=== PATIENT | male | born 1945 | race Caucasian/White ===

== ENCOUNTER 2017-05-13 14:25 | Inpatient (IN) | payer OTHER ==
[~2017-05-13] VITALS: Ht 177.8 cm; Wt 72.6 kg
[2017-05-13] MEDS ORDERED: IV NORMAL SALINE 1000ML BAG 1,000 ML IV ONE (14:45)
[2017-05-13 15:18] LABS: BASO # 0.1 x10^3/uL (0.0-0.2); BASO % 1 % (0-3); EOS % 1 % (0-3); HEMATOCRIT 48.3 % (39.0-53.0); HEMOGLOBIN 16.4 g/dL (13.0-17.5); LYMPH # 2.4 x10^3/uL (1.0-4.8); LYMPH % 28 % (24-48); MEAN CORPUSCULAR HEMOGLOBIN 31 pg (25-35); MEAN CORPUSCULAR HGB CONC 34 g/dL (31-37); MEAN CORPUSCULAR VOLUME 91 fL (79-100); MONO % 8 % (0-9); NEUT % 62 % (31-73); PLATELET COUNT 227 x10^3/uL (140-400); RED BLOOD COUNT 5.29 x10^6/uL (4.30-5.70); RED CELL DISTRIBUTION WIDTH 13.3 % (11.5-14.5); WHITE BLOOD COUNT 8.6 x10^3/uL (4.0-11.0)
--- NOTE | 2017-05-13 15:28 | RAD ---
CT head without contrast 05/13/2017 at 1513 hours Indication: Altered mental status Comparison: None available Technique: Multiple axial noncontrast CT images of the head were obtained from the skull base through the vertex. Findings: The ventricles, sulci and basal cisterns are within normal limits. Low-attenuation periventricular white matter is compatible with chronic small vessel ischemic changes. Remote lacunar infarcts are noted in the bilateral basal ganglia. Remote left subinsular infarct is noted. Yanez-white matter differentiation is normal. There is no acute intracranial hemorrhage. There is no mass, mass effect or midline shift. Posterior fossa is within normal limits. Sellar and suprasellar cistern appear normal. Orbits are normal in appearance. Paranasal sinuses are well aerated. Mastoid air cells are well aerated. Scalp and calvaria are normal. Impression: 1. There is no acute intracranial hemorrhage. 2. Moderate chronic small vessel ischemic changes in the paraventricular white matter with remote lacunar infarcts in the basal ganglia and a remote infarct noted in the left frontal white matter. PQRS Compliance Statement: One or more of the following individualized dose reduction techniques were utilized for this examination: 1. Automated exposure control 2. Adjustment of the mA and/or kV according to patient size 3. Use of iterative reconstruction technique
--- NOTE | 2017-05-13 15:34 | PHYS DOC ---
Adult General Chief Complaint Chief Complaint: ALTERED MENTAL STATUS HPI HPI Patient is a 72 year old male presenting to the emergency department for evaluation of altered mental status. Reportedly he was last seen normal 2 days ago and his family went to go check on him today and he is alert and oriented 1. He will follow commands but he does not have any knowledge of orientation questions. Patient denies any pain and he is in no obvious distress with normal vital signs. Review of Systems Review of Systems Unable to obtain due to medical condition. Current Medications Current Medications Current Medications Medications (Trade) Dose Ordered Sig/Gordo Start Time Stop Time Status Last Admin Dose Admin Ondansetron HCl (Zofran) 4 mg PRN Q8HRS PRN 05/13/17 16:15 05/14/17 16:14 Sodium Chloride 1,000 ml @ 1,000 mls/hr 1X ONCE 05/13/17 14:45 05/13/17 15:44 DC 05/13/17 15:03 1,000 MLS/HR Allergies Allergies Allergies Coded Allergies Type Severity Reaction Last Updated Verified No Known Drug Allergies 05/13/17 No Physical Exam Physical Exam Constitutional: no acute distress, non-toxic appearance. [] HENT: Normocephalic, atraumatic, bilateral external ears normal, oropharynx moist, no oral exudates, nose normal. [] Eyes: PERRLA, EOMI, conjunctiva normal, no discharge. [] Neck: Normal range of motion, no tenderness, supple, no stridor. [] Cardiovascular:Heart rate regular rhythm, no murmur [] Lungs & Thorax: Bilateral breath sounds clear to auscultation [] Abdomen: Bowel sounds normal, soft, no tenderness, no masses, no pulsatile masses. [] Skin: Warm, dry, no erythema, no rash. [] Back: No tenderness, no CVA tenderness. [] Extremities: No tenderness, no cyanosis, no clubbing, ROM intact, no edema. [] Neurologic: Alert and oriented X 1, moves all extremities. Slight asterixis on bilateral upper extremity exam. Mild tremor at baseline as well. Current Patient Data Vital Signs Vital Signs Date Time Temp Pulse Resp B/P (MAP) Pulse Ox O2 Delivery O2 Flow Rate FiO2 05/13/17 14:35 98.6 85 18 163/81 (108) 96 Room Air 98.6 Lab Values Laboratory Tests Test 05/13/17 14:44 White Blood Count 8.6 x10^3/uL (4.0-11.0) Red Blood Count 5.29 x10^6/uL (4.30-5.70) Hemoglobin 16.4 g/dL (13.0-17.5) Hematocrit 48.3 % (39.0-53.0) Mean Corpuscular Volume 91 fL (79-100) Mean Corpuscular Hemoglobin 31 pg (25-35) Mean Corpuscular Hemoglobin Concent 34 g/dL (31-37) Red Cell Distribution Width 13.3 % (11.5-14.5) Platelet Count 227 x10^3/uL (140-400) Neutrophils (%) (Auto) 62 % (31-73) Lymphocytes (%) (Auto) 28 % (24-48) Monocytes (%) (Auto) 8 % (0-9) Eosinophils (%) (Auto) 1 % (0-3) Basophils (%) (Auto) 1 % (0-3) Neutrophils # (Auto) 5.3 x10^3uL (1.8-7.7) Lymphocytes # (Auto) 2.4 x10^3/uL (1.0-4.8) Monocytes # (Auto) 0.7 x10^3/uL (0.0-1.1) Eosinophils # (Auto) 0.1 x10^3/uL (0.0-0.7) Basophils # (Auto) 0.1 x10^3/uL (0.0-0.2) Prothrombin Time 12.9 SEC (11.7-14.0) Prothrombin Time INR 1.0 (0.8-1.1) PTT 35 SEC (24-38) Sodium Level 135 mmol/L (136-145) L Potassium Level 4.2 mmol/L (3.5-5.1) Chloride Level 98 mmol/L (98-107) Carbon Dioxide Level 23 mmol/L (21-32) Anion Gap 14 (6-14) Blood Urea Nitrogen 13 mg/dL (8-26) Creatinine 1.1 mg/dL (0.7-1.3) Estimated GFR (Cockcroft-Gault) 66.0 BUN/Creatinine Ratio 12 (6-20) Glucose Level 97 mg/dL (70-99) Lactic Acid Level 1.0 mmol/L (0.4-2.0) Calcium Level 9.1 mg/dL (8.5-10.1) Magnesium Level 2.1 mg/dL (1.8-2.4) Total Bilirubin 0.7 mg/dL (0.2-1.0) Aspartate Amino Transferase (AST) 20 U/L (15-37) Alanine Aminotransferase (ALT) 21 U/L (16-63) Alkaline Phosphatase 128 U/L (46-116) H Ammonia < 10 mcmol/L (11-34) L Troponin I Quantitative < 0.017 ng/mL (0.000-0.055) TT-Lcc-Q-Type Natriuretic Peptide 392 pg/mL (0-124) H Total Protein 7.6 g/dL (6.4-8.2) Albumin 3.4 g/dL (3.4-5.0) Albumin/Globulin Ratio 0.8 (1.0-1.7) L Lipase 58 U/L (73-393) L Thyroid Stimulating Hormone (TSH) 1.112 uIU/mL (0.358-3.74) Salicylates Level 3.4 mg/dL (2.8-20.0) Salicylate Last Dose Date Salicylate Last Dose Time Acetaminophen Level < 2 mcg/ml (10-30) L Acetaminophen Last Dose Date Acetaminophen Last Dose Time Ethyl Alcohol Level < 10 mg/dL (0-10) Laboratory Tests 05/13/17 14:44 Laboratory Tests 05/13/17 14:44 EKG EKG Sinus rhythm at 61 beats per minutes with leftward axis no obvious ST elevation or depression and normal T waves. Radiology/Procedures Radiology/Procedures CT head without contrast 05/13/2017 at 1513 hours Indication: Altered mental status Comparison: None available Technique: Multiple axial noncontrast CT images of the head were obtained from the skull base through the vertex. Findings: The ventricles, sulci and basal cisterns are within normal limits. Low-attenuation periventricular white matter is compatible with chronic small vessel ischemic changes. Remote lacunar infarcts are noted in the bilateral basal ganglia. Remote left subinsular infarct is noted. Yanez-white matter differentiation is normal. There is no acute intracranial hemorrhage. There is no mass, mass effect or midline shift. Posterior fossa is within normal limits. Sellar and suprasellar cistern appear normal. Orbits are normal in appearance. Paranasal sinuses are well aerated. Mastoid air cells are well aerated. Scalp and calvaria are normal. Impression: 1. There is no acute intracranial hemorrhage. 2. Moderate chronic small vessel ischemic changes in the paraventricular white matter with remote lacunar infarcts in the basal ganglia and a remote infarct noted in the left frontal white matter. PQRS Compliance Statement: One or more of the following individualized dose reduction techniques were utilized for this examination: 1. Automated exposure control 2. Adjustment of the mA and/or kV according to patient size 3. Use of iterative reconstruction technique DICTATED and SIGNED BY: JARVIS COLIN MD DATE: 05/13/17 1523 Course & Med Decision Making Course & Med Decision Making Patient with undifferentiated altered mental status. He will require admission for further observation and treatment. His workup is very unremarkable however patient's mental status has not changed. Given patient has had acute mental status changes he will be admitted for further observation and treatment. Patient admitted in stable condition. Dragon Disclaimer Dragon Disclaimer This electronic medical record was generated, in whole or in part, using a voice recognition dictation system. Departure Departure Impression: Primary Impression: Acute encephalopathy Additional Impression: Elevated brain natriuretic peptide (BNP) level Disposition: ADMITTED INPATIENT Admitting Physician: Julianne Palmer Condition: STABLE Referrals: NO PCP (PCP) Problem Qualifiers HOWIE HERNANDEZ DO May 13, 2017 15:34
[2017-05-13 15:38] LABS: CALCIUM 9.1 mg/dL (8.5-10.1); CREATININE 1.1 mg/dL (0.7-1.3); POTASSIUM 4.2 mmol/L (3.5-5.1)
[2017-05-13 15:41] LABS: ETHANOL < 10 mg/dL (0-10)
[2017-05-13 15:43] LABS: ALBUMIN 3.4 g/dL (3.4-5.0); ALBUMIN/GLOBULIN RATIO 0.8 (1.0-1.7); MAGNESIUM 2.1 mg/dL (1.8-2.4); TOTAL BILIRUBIN 0.7 mg/dL (0.2-1.0); TOTAL PROTEIN 7.6 g/dL (6.4-8.2)
[2017-05-13 15:52] LABS: PROTHROMBIN TIME PATIENT 12.9 SEC (11.7-14.0)
--- NOTE | 2017-05-13 16:04 | EKG ---
[facility] [address] [place] [address] Test Date: 2017-05-13 Test Time: 14:30:59 Pat Name: RUPERTO APPLE Department: Room: Gender: M Crust Sorter: : 1945 Requested By: HOWEI HERNANDEZ Order Number: [id number] Reading MD: Melissa Andino Measurements Intervals [place] Rate: 61 P: 35 TN: 154 QRS: -11 QRSD: 88 T: 12 QT: 422 QTc: 426 Interpretive Statements SINUS RHYTHM ATRIAL PREMATURE COMPLEX(ES) LEFTWARD AXIS QRS(T) CONTOUR ABNORMALITY CONSISTENT WITH INFERIOR INFARCT PROBABLY OLD Electronically Signed On 05-14-2017 16:21:47 CDT by Melissa Andino
[2017-05-13] MEDS ORDERED: ONDANSETRON PF 4 MG/2 ML VIAL. IV PRN (16:15)
[2017-05-13 16:45] LABS: BILIRUBIN,URINE NEGATIVE (NEG); GLUCOSE,URINE NEGATIVE (NEG); NITRITE,URINE NEGATIVE (NEG); PH,URINE 5.5; PROTEIN,URINE NEGATIVE (NEG-TRACE); UROBILINOGEN,URINE 0.2 mg/dL (0.2 mg/dL)
[2017-05-13 17:23] LABS: BACTERIA,URINE FEW /HPF (0-FEW); RBC,URINE 0 /HPF (0-2)
[2017-05-13 17:33] LABS: BARBITURATES NEG (NEG); BENZODIAZEPINES NEG (NEG); CANNABINOIDS NEG (NEG); COCAINE NEG (NEG); METHADONE NEG (NEG); OPIATES NEG (NEG); PHENCYCLIDINE NEG (NEG)
[2017-05-13 18:45] VITALS: BP 142/73
[2017-05-13 19:20] VITALS: BP 121/61
--- NOTE | 2017-05-13 20:56 | PDOC1 ---
History and Physical Date of Admission Date of Admission DATE: 05/13/17 TIME: 20:52 Source Source: Caregiver, Chart review History of Present Illness History of Present Illness MR. Guerra is a 72 year old male admit for confusion and disoriented. New altered mental status. He was last seen 2 days ago and his family went to go check on him today and he is alert and oriented 1. He will follow commands but he does not have any knowledge of orientation questions. He is watching the [employer] game on TV, but incorrectly states score and location , cannot follow He denies any pain and he is in no obvious distress with normal vital signs. Past Medical History Cardiovascular: HTN CENTRAL NERVOUS SYSTEM: Other (CVA seen on CT) ENT: No pertinent hx Renal/: No pertinent hx Endocrine: No pertinent hx Past Surgical History Past Surgical History: No pertinent history Family History Family History: No Significant Social History Smoke: No ALCOHOL: none Current Problem List Problem List Problems Medical Problems: (1) Acute encephalopathy Status: Acute (2) Elevated brain natriuretic peptide (BNP) level Status: Acute Problems: Current Medications Current Medications Current Medications Sodium Chloride 1,000 ml @ 1,000 mls/hr 1X ONCE IV Last administered on t 15:03; Start 05/13/17 at 14:45; Stop 05/13/17 at 15:44; Status DC Ondansetron HCl (Zofran) 4 mg PRN Q8HRS PRN IV NAUSEA/VOMITING; Start 05/13/17 at 16:15; Stop 05/14/17 at 16:14 Allergies Allergies: Coded Allergies: No Known Drug Allergies (Unverified , 05/13/17) ROS Review of System he is unable to remember much Physical Exam General: Alert, Cooperative, No acute distress, Other (disoriented) HEENT: EOMI, Mucous membr. moist/pink Lungs: Normal air movement Abdomen: Normal bowel sounds, Soft Rectal Exam: not examined Extremities: No clubbing, No cyanosis, No edema, Normal pulses Skin: No rashes, No significant lesion Neuro: Normal tone, Sensation intact, Cranial nerves 3-12 NL Psych/Mental Status: Mood NL Vitals Vitals Vital Signs Date Time Temp Pulse Resp B/P (MAP) Pulse Ox O2 Delivery O2 Flow Rate FiO2 05/13/17 18:45 97.9 52 19 142/73 (96) 98 Room Air 97.9 Labs Labs Laboratory Tests Test 05/13/17 14:44 05/13/17 16:00 05/13/17 18:45 White Blood Count 8.6 x10^3/uL (4.0-11.0) Red Blood Count 5.29 x10^6/uL (4.30-5.70) Hemoglobin 16.4 g/dL (13.0-17.5) Hematocrit 48.3 % (39.0-53.0) Mean Corpuscular Volume 91 fL (79-100) Mean Corpuscular Hemoglobin 31 pg (25-35) Mean Corpuscular Hemoglobin Concent 34 g/dL (31-37) Red Cell Distribution Width 13.3 % (11.5-14.5) Platelet Count 227 x10^3/uL (140-400) Neutrophils (%) (Auto) 62 % (31-73) Lymphocytes (%) (Auto) 28 % (24-48) Monocytes (%) (Auto) 8 % (0-9) Eosinophils (%) (Auto) 1 % (0-3) Basophils (%) (Auto) 1 % (0-3) Neutrophils # (Auto) 5.3 x10^3uL (1.8-7.7) Lymphocytes # (Auto) 2.4 x10^3/uL (1.0-4.8) Monocytes # (Auto) 0.7 x10^3/uL (0.0-1.1) Eosinophils # (Auto) 0.1 x10^3/uL (0.0-0.7) Basophils # (Auto) 0.1 x10^3/uL (0.0-0.2) Prothrombin Time 12.9 SEC (11.7-14.0) Prothromb Time International Ratio 1.0 (0.8-1.1) Activated Partial Thromboplast Time 35 SEC (24-38) Sodium Level 135 mmol/L (136-145) Potassium Level 4.2 mmol/L (3.5-5.1) Chloride Level 98 mmol/L (98-107) Carbon Dioxide Level 23 mmol/L (21-32) Anion Gap 14 (6-14) Blood Urea Nitrogen 13 mg/dL (8-26) Creatinine 1.1 mg/dL (0.7-1.3) Estimated GFR (Cockcroft-Gault) 66.0 BUN/Creatinine Ratio 12 (6-20) Glucose Level 97 mg/dL (70-99) Lactic Acid Level 1.0 mmol/L (0.4-2.0) Calcium Level 9.1 mg/dL (8.5-10.1) Magnesium Level 2.1 mg/dL (1.8-2.4) Total Bilirubin 0.7 mg/dL (0.2-1.0) Aspartate Amino Transf (AST/SGOT) 20 U/L (15-37) Alanine Aminotransferase (ALT/SGPT) 21 U/L (16-63) Alkaline Phosphatase 128 U/L (46-116) Ammonia < 10 mcmol/L (11-34) Troponin I Quantitative < 0.017 ng/mL (0.000-0.055) HV-Kcn-G-Type Natriuretic Peptide 392 pg/mL (0-124) Total Protein 7.6 g/dL (6.4-8.2) Albumin 3.4 g/dL (3.4-5.0) Albumin/Globulin Ratio 0.8 (1.0-1.7) Lipase 58 U/L (73-393) Thyroid Stimulating Hormone (TSH) 1.112 uIU/mL (0.358-3.74) 1.236 uIU/mL (0.358-3.74) Salicylates Level 3.4 mg/dL (2.8-20.0) Salicylate Last Dose Date Salicylate Last Dose Time Acetaminophen Level < 2 mcg/ml (10-30) Acetaminophen Last Dose Date Acetaminophen Last Dose Time Ethyl Alcohol Level < 10 mg/dL (0-10) Urine Collection Type Unknown Urine Color Yellow Urine Clarity Clear Urine pH 5.5 Urine Specific [place] 1.010 Urine Protein Negative mg/dL (NEG-TRACE) Urine Glucose (UA) Negative mg/dL (NEG) Urine Ketones (Stick) 40 mg/dL (NEG) Urine Blood Negative (NEG) Urine Nitrite Negative (NEG) Urine Bilirubin Negative (NEG) Urine Urobilinogen Dipstick 0.2 mg/dL (0.2 mg/dL) Urine Leukocyte Esterase Negative (NEG) Urine RBC 0 /HPF (0-2) Urine WBC 1-4 /HPF (0-4) Urine Squamous Epithelial Cells None /LPF Urine Transitional Epithelial Cells Mod /LPF Urine Bacteria Few /HPF (0-FEW) Urine Mucus Mod /LPF Urine Opiates Screen Neg (NEG) Urine Methadone Screen Neg (NEG) Urine Barbiturates Neg (NEG) Urine Phencyclidine Screen Neg (NEG) Urine Amphetamine/Methamphetamine Neg (NEG) Urine Benzodiazepines Screen Neg (NEG) Urine Cocaine Screen Neg (NEG) Urine Cannabinoids Screen Neg (NEG) Urine Ethyl Alcohol Neg (NEG) Laboratory Tests Test 05/13/17 14:44 05/13/17 16:00 05/13/17 18:45 White Blood Count 8.6 x10^3/uL (4.0-11.0) Red Blood Count 5.29 x10^6/uL (4.30-5.70) Hemoglobin 16.4 g/dL (13.0-17.5) Hematocrit 48.3 % (39.0-53.0) Mean Corpuscular Volume 91 fL (79-100) Mean Corpuscular Hemoglobin 31 pg (25-35) Mean Corpuscular Hemoglobin Concent 34 g/dL (31-37) Red Cell Distribution Width 13.3 % (11.5-14.5) Platelet Count 227 x10^3/uL (140-400) Neutrophils (%) (Auto) 62 % (31-73) Lymphocytes (%) (Auto) 28 % (24-48) Monocytes (%) (Auto) 8 % (0-9) Eosinophils (%) (Auto) 1 % (0-3) Basophils (%) (Auto) 1 % (0-3) Neutrophils # (Auto) 5.3 x10^3uL (1.8-7.7) Lymphocytes # (Auto) 2.4 x10^3/uL (1.0-4.8) Monocytes # (Auto) 0.7 x10^3/uL (0.0-1.1) Eosinophils # (Auto) 0.1 x10^3/uL (0.0-0.7) Basophils # (Auto) 0.1 x10^3/uL (0.0-0.2) Prothrombin Time 12.9 SEC (11.7-14.0) Prothromb Time International Ratio 1.0 (0.8-1.1) Activated Partial Thromboplast Time 35 SEC (24-38) Sodium Level 135 mmol/L (136-145) Potassium Level 4.2 mmol/L (3.5-5.1) Chloride Level 98 mmol/L (98-107) Carbon Dioxide Level 23 mmol/L (21-32) Anion Gap 14 (6-14) Blood Urea Nitrogen 13 mg/dL (8-26) Creatinine 1.1 mg/dL (0.7-1.3) Estimated GFR (Cockcroft-Gault) 66.0 BUN/Creatinine Ratio 12 (6-20) Glucose Level 97 mg/dL (70-99) Lactic Acid Level 1.0 mmol/L (0.4-2.0) Calcium Level 9.1 mg/dL (8.5-10.1) Magnesium Level 2.1 mg/dL (1.8-2.4) Total Bilirubin 0.7 mg/dL (0.2-1.0) Aspartate Amino Transf (AST/SGOT) 20 U/L (15-37) Alanine Aminotransferase (ALT/SGPT) 21 U/L (16-63) Alkaline Phosphatase 128 U/L (46-116) Ammonia < 10 mcmol/L (11-34) Troponin I Quantitative < 0.017 ng/mL (0.000-0.055) JX-Nke-N-Type Natriuretic Peptide 392 pg/mL (0-124) Total Protein 7.6 g/dL (6.4-8.2) Albumin 3.4 g/dL (3.4-5.0) Albumin/Globulin Ratio 0.8 (1.0-1.7) Lipase 58 U/L (73-393) Thyroid Stimulating Hormone (TSH) 1.112 uIU/mL (0.358-3.74) 1.236 uIU/mL (0.358-3.74) Salicylates Level 3.4 mg/dL (2.8-20.0) Salicylate Last Dose Date Salicylate Last Dose Time Acetaminophen Level < 2 mcg/ml (10-30) Acetaminophen Last Dose Date Acetaminophen Last Dose Time Ethyl Alcohol Level < 10 mg/dL (0-10) Urine Collection Type Unknown Urine Color Yellow Urine Clarity Clear Urine pH 5.5 Urine Specific [place] 1.010 Urine Protein Negative mg/dL (NEG-TRACE) Urine Glucose (UA) Negative mg/dL (NEG) Urine Ketones (Stick) 40 mg/dL (NEG) Urine Blood Negative (NEG) Urine Nitrite Negative (NEG) Urine Bilirubin Negative (NEG) Urine Urobilinogen Dipstick 0.2 mg/dL (0.2 mg/dL) Urine Leukocyte Esterase Negative (NEG) Urine RBC 0 /HPF (0-2) Urine WBC 1-4 /HPF (0-4) Urine Squamous Epithelial Cells None /LPF Urine Transitional Epithelial Cells Mod /LPF Urine Bacteria Few /HPF (0-FEW) Urine Mucus Mod /LPF Urine Opiates Screen Neg (NEG) Urine Methadone Screen Neg (NEG) Urine Barbiturates Neg (NEG) Urine Phencyclidine Screen Neg (NEG) Urine Amphetamine/Methamphetamine Neg (NEG) Urine Benzodiazepines Screen Neg (NEG) Urine Cocaine Screen Neg (NEG) Urine Cannabinoids Screen Neg (NEG) Urine Ethyl Alcohol Neg (NEG) VTE Prophylaxis Ordered VTE Prophylaxis Devices: Yes VTE Pharmacological Prophylaxi: No Assessment/Plan Assessment/Plan encephalopathy, w/u neg so far, CT head showed prior infarct, poss new CVA w/u CVA syndrome, Neuro consult, MRI brain pending check lipids MANISHA FARIA MD May 13, 2017 20:56
[2017-05-13] MEDS ORDERED: ASPIRIN 325 MG TABLET PO ONE (21:00)
[2017-05-13 23:20] VITALS: BP 133/61
--- NOTE | 2017-05-14 01:15 | ACF ---
Admission Forms Criteria MENTAL STATUS CHANGE Clinical Indications for Inpatient Care (Place 'X' for any and all applicable criteria): Ongoing inpatient care may be needed for 1 or more of the following(1)(2)(3)(5)( 6): [X]I. Suspected serious etiology (eg, medical disorder, GUM DIPPER event) of altered mental status [ ]II. Danger to self or others not manageable at lower level of care [ ]III. Grave disability (eg, inability to perform self care necessary at lower level of care) [ ]IV. Agitation or inappropriate behavior interfering with care for primary condition (eg, attempting to discontinue lines or drains prematurely, unable to cooperate with respiratory care) [ ]V. Delirium [A] [D][E] as described by 1 or more of the following(26): [ ]a) Delirium due to alcohol or sedative [F] withdrawal [ ]b) Delirium of uncertain etiology that has not responded to appropriate empiric treatment [ ]c) Delirium that prevents performance of a life-sustaining function (eg, feeding or hydrating oneself) [ ]. General contraindications and/or Inappropriate clinical situations for Observational Care in patients with Mental Status Change, when ANY ONE of the following is required: [ ]a) Prediction of prolongation of LOS based on ANY ONE of the following may be considered as a contraindication for observational care 2, 3, 4, 5, 6, 7, 8, 9, 10, 11 [ ]i) Age > 65 yrs. [ ]ii) Patient arriving by ambulance [ ]iii) Patient with high acuity [ ]iv) Patient requiring vital sign monitoring [ ]v) Patient on IV medication [ ]b) Systolic blood pressures greater than or equal to 180mmHg 3, 12 [ ]c) Patient with altered mental status including delirium and other alteration of consciousness, (3) [ ]d) Patient whose discharge disposition will be to a custodial home or rehabilitation home should not be managed in Emergency Department Observation Unit. CMS rule requires 3 days hospital stay before such placement.3,13 [ ]e) Patient with failure to thrive due to broad array of etiologies 3,16,17 [ ]f) Inability to ambulate 3,14 Extended stay beyond goal length of stay for the primary condition may be needed until ALL of the following are present(3)(5): [ ]a) Underlying medical etiology of mental status change is absent, or has been established and adequately treated [ ]b) Danger to self or others is absent or manageable at lower level of care. [ ]c) Behavior crisis management, including physical or chemical restraints, is not required or available at lower level of car [ ]d) Substance or alcohol withdrawal is absent or manageable at lower level of care. [ ]e) Behavioral symptoms (eg, agitation, somnolence, inappropriate behavior) are absent, or are manageable at lower level of care. The original [facility] content created by [facility] has been revised. The portions of the content which have been revised are identified through the use of italic text or in bold, and [facility] has neither reviewed nor approved the modified material. All other unmodified content is copyright [facility]. Please see references footnoted in the original [facility] edition 2016 Admission Criteria Met?: Yes FARRAH ALLEN May 14, 2017 01:15
[2017-05-14 03:20] VITALS: BP 101/62
[2017-05-14 04:17] LABS: BASO # 0.1 x10^3/uL (0.0-0.2); BASO % 1 % (0-3); EOS % 2 % (0-3); HEMATOCRIT 43.9 % (39.0-53.0); HEMOGLOBIN 14.6 g/dL (13.0-17.5); LYMPH # 2.7 x10^3/uL (1.0-4.8); LYMPH % 36 % (24-48); MEAN CORPUSCULAR HEMOGLOBIN 31 pg (25-35); MEAN CORPUSCULAR HGB CONC 33 g/dL (31-37); MEAN CORPUSCULAR VOLUME 93 fL (79-100); MONO % 11 % (0-9); NEUT % 50 % (31-73); PLATELET COUNT 218 x10^3/uL (140-400); RED BLOOD COUNT 4.73 x10^6/uL (4.30-5.70); WHITE BLOOD COUNT 7.4 x10^3/uL (4.0-11.0)
[2017-05-14 05:02] LABS: ALBUMIN 2.9 g/dL (3.4-5.0); ALBUMIN/GLOBULIN RATIO 0.8 (1.0-1.7); CALCIUM 8.8 mg/dL (8.5-10.1); CREATININE 1.1 mg/dL (0.7-1.3); POTASSIUM 3.8 mmol/L (3.5-5.1); TOTAL BILIRUBIN 0.3 mg/dL (0.2-1.0); TOTAL PROTEIN 6.5 g/dL (6.4-8.2)
[2017-05-14 05:08] LABS: CHOLESTEROL/HDL RATIO 7.3
[2017-05-14 07:00] VITALS: BP 117/61
[2017-05-14] MEDS: ASPIRIN 325 MG TABLET PO SCH (09:35)
[2017-05-14 11:01] VITALS: BP 130/89
[2017-05-14 15:08] VITALS: BP 121/62
--- NOTE | 2017-05-14 15:39 | PDOC ---
PROGRESS NOTES Chief Complaint Chief Complaint Encephalopathy ASSESSMENT AND PLAN: 1. Encephalopathy: unclear etiology. no metabolic derangements, no infectious signs, no acute findings on non-con CT. MRI pending; neuro consult pending 2. PVD: CT head showed prior infarct, small vessel dz. ADDENDUM: MRI by verbal report with infarcts in MCA territory. d/w Dr Norris. add. tests added. History of Present Illness History of Present Illness awake, no c/o watching TV intently. Vitals Vitals Vital Signs Date Time Temp Pulse Resp B/P (MAP) Pulse Ox O2 Delivery O2 Flow Rate FiO2 05/14/17 15:08 98.8 60 19 121/62 (81) 96 Room Air 98.8 Physical Exam Physical Exam R facial droop; MS 5/5 x4 General: Alert, Cooperative, No acute distress, Other (disoriented) Lungs: Clear Abdomen: Normal bowel sounds, Soft Extremities: No clubbing, No cyanosis, No edema Skin: No rashes Labs LABS Laboratory Tests Test 05/13/17 16:00 05/13/17 18:45 05/14/17 03:30 Urine Collection Type Unknown Urine Color Yellow Urine Clarity Clear Urine pH 5.5 Urine Specific [place] 1.010 Urine Protein Negative mg/dL (NEG-TRACE) Urine Glucose (UA) Negative mg/dL (NEG) Urine Ketones (Stick) 40 mg/dL (NEG) Urine Blood Negative (NEG) Urine Nitrite Negative (NEG) Urine Bilirubin Negative (NEG) Urine Urobilinogen Dipstick 0.2 mg/dL (0.2 mg/dL) Urine Leukocyte Esterase Negative (NEG) Urine RBC 0 /HPF (0-2) Urine WBC 1-4 /HPF (0-4) Urine Squamous Epithelial Cells None /LPF Urine Transitional Epithelial Cells Mod /LPF Urine Bacteria Few /HPF (0-FEW) Urine Mucus Mod /LPF Urine Opiates Screen Neg (NEG) Urine Methadone Screen Neg (NEG) Urine Barbiturates Neg (NEG) Urine Phencyclidine Screen Neg (NEG) Urine Amphetamine/Methamphetamine Neg (NEG) Urine Benzodiazepines Screen Neg (NEG) Urine Cocaine Screen Neg (NEG) Urine Cannabinoids Screen Neg (NEG) Urine Ethyl Alcohol Neg (NEG) Thyroid Stimulating Hormone (TSH) 1.236 uIU/mL (0.358-3.74) White Blood Count 7.4 x10^3/uL (4.0-11.0) Red Blood Count 4.73 x10^6/uL (4.30-5.70) Hemoglobin 14.6 g/dL (13.0-17.5) Hematocrit 43.9 % (39.0-53.0) Mean Corpuscular Volume 93 fL (79-100) Mean Corpuscular Hemoglobin 31 pg (25-35) Mean Corpuscular Hemoglobin Concent 33 g/dL (31-37) Red Cell Distribution Width 13.0 % (11.5-14.5) Platelet Count 218 x10^3/uL (140-400) Neutrophils (%) (Auto) 50 % (31-73) Lymphocytes (%) (Auto) 36 % (24-48) Monocytes (%) (Auto) 11 % (0-9) Eosinophils (%) (Auto) 2 % (0-3) Basophils (%) (Auto) 1 % (0-3) Neutrophils # (Auto) 3.7 x10^3uL (1.8-7.7) Lymphocytes # (Auto) 2.7 x10^3/uL (1.0-4.8) Monocytes # (Auto) 0.8 x10^3/uL (0.0-1.1) Eosinophils # (Auto) 0.1 x10^3/uL (0.0-0.7) Basophils # (Auto) 0.1 x10^3/uL (0.0-0.2) Sodium Level 139 mmol/L (136-145) Potassium Level 3.8 mmol/L (3.5-5.1) Chloride Level 103 mmol/L (98-107) Carbon Dioxide Level 26 mmol/L (21-32) Anion Gap 10 (6-14) Blood Urea Nitrogen 15 mg/dL (8-26) Creatinine 1.1 mg/dL (0.7-1.3) Estimated GFR (Cockcroft-Gault) 66.0 BUN/Creatinine Ratio 14 (6-20) Glucose Level 86 mg/dL (70-99) Calcium Level 8.8 mg/dL (8.5-10.1) Total Bilirubin 0.3 mg/dL (0.2-1.0) Aspartate Amino Transf (AST/SGOT) 17 U/L (15-37) Alanine Aminotransferase (ALT/SGPT) 18 U/L (16-63) Alkaline Phosphatase 110 U/L (46-116) Total Protein 6.5 g/dL (6.4-8.2) Albumin 2.9 g/dL (3.4-5.0) Albumin/Globulin Ratio 0.8 (1.0-1.7) Triglycerides Level 101 mg/dL (0-150) Cholesterol Level 182 mg/dL (0-200) LDL Cholesterol, Calculated 137 mg/dL (0-100) VLDL Cholesterol, Calculated 20 mg/dL (0-40) Non-HDL Cholesterol Calculated 157 mg/dL (0-129) HDL Cholesterol 25 mg/dL (40-60) Cholesterol/HDL Ratio 7.3 RICHARD RESTREPO MD May 14, 2017 15:39
--- NOTE | 2017-05-14 15:50 | RAD ---
Indication: Altered mental status. Technique: Sagittal T1, axial T1, axial T2, axial FLAIR, axial T2 gradient, coronal T2, and diffusion imaging with ADC map was performed. Comparison is a CT head from one day earlier. Findings: There are multiple areas of restricted diffusion with ADC correlate noted throughout the left temporal and parietal lobes as well as the posterior left frontal lobe. Largest infarct is 3 cm in size, the majority of these infarcts are closer to a centimeter in size. Distribution is middle cerebral artery. Given multiple smaller infarcts, embolic etiology should be considered. There are also acute left basal ganglia infarcts. There is no hemorrhagic transformation. The ventricles and sulci are within normal limits for age. FLAIR hyperintensities unrelated to the infarcts are nonspecific and may be secondary to small vessel ischemic disease. There is no acute intracranial hemorrhage. There is no extra-axial fluid collection. There is no mass effect or midline shift. Cavernous carotid flow voids are preserved. Left M1 segment flow void is not well visualized, consider MRA or CT angiogram given acute infarct in this distribution. Cervical medullary junction is unremarkable. Paranasal sinuses and mastoid air cells are clear. Critical report of infarct was called to the patient's nurse, Danay, at 1545 hours. Impression: 1. Multiple small acute infarcts in a left MCA distribution. Consider embolic etiology. 2. Brain parenchymal volume loss and probable small vessel ischemic disease.
--- NOTE | 2017-05-14 19:28 | PDOC2 ---
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 Metabolic encephalopathy. HTN HLD RECOMMENDATIONS/PLAN: ASA 325 mg daily. Zocor 10 mg HS. Carotid A US + Doppler. Echo + Bubble study. May need to consult Cardiology if no carotid stenosis. Brain MRI : see above infarcts. HISTORY OF THE PRESENT ILLNESS: 72-y-old male patient with above medical diseases was noted MS changes to be brought to the ER of [facility]. He was last seen normal 2 days prior to the day to be brought here. The patient was not able to provide history. No obvious motor deficit noted. Past Medical History Cardiovascular: HTN CENTRAL NERVOUS SYSTEM: Other (CVA seen on CT) ENT: No pertinent hx Renal/: No pertinent hx Endocrine: No pertinent hx Past Surgical History No pertinent history Family History No Significant Social History Smoke: No ALCOHOL: none ALLERGY: Unknown MEDICATIONS: Refer to MAR REVIEW OF SYSTEMS: Constitutional: No malnutrition, weight loss, cachexia. Head: No traumatic brain or head injury. Skin: No edema, or rash. Ear: No infection. Eyes: No vision loss or color blindness. Nose: No bleeding or purulent discharges. Hearing: Hearing decrease. Neck: No injury. Cardiac: HTN, HLD. Pulmonary: COPD. GI: No GI ulcer, GI bleeding. Urinary/genital: UTI. Endocrinologic: No cousin face, craniofacial dysmorphism, polydactyly. Skeletomuscular: No muscular atrophy, deformity. Neurological: see HP. Psychiatric: Denies drug use/abuse. Otherwise, not [id number] review of systems. PHYSICAL EXAMINATION: General appearance is in subacute distress. HEENT: Normocephalic and nontraumatic. Eyes, nose, ears, and throat are unremarkable. Neck is supple. No lymphadenopathy. No crepitus. Cardiovascular: S1, S2, regular rate and rhythm. Pulmonary: Clear to auscultation bilaterally. Abdomen: Bowel sounds are positive. Extremities: No rash, lesions, or edema. No restriction of range of motion NEUROLOGICAL EXAMINATION: Awake. Unable to communicate. Not oriented to time, place and person. PERRL. EOMI. CN: right side seemed mildly asymmetric. Muscle tone: within normal. Muscle strength: 5 DTR: 2 Plantar reflex: Neutral response bilaterally Gait: not examined in bed. Sensory exam: no abnormal findings. No obvious cerebellar signs elicited. F-T-N test not very accurate.. Current Medications Current Medications Current Medications Sodium Chloride 1,000 ml @ 1,000 mls/hr 1X ONCE IV Last administered on 15:03; Start 05/13/17 at 14:45; Stop 05/13/17 at 15:44; Status DC Ondansetron HCl (Zofran) 4 mg PRN Q8HRS PRN IV NAUSEA/VOMITING; Start 05/13/17 at 16:15; Stop 05/14/17 at 16:14; Status DC Aspirin ([employer] Aspirin) 325 mg 1X ONCE PO Last administered on 05/13/17 21:52 ; Start 05/13/17 at 21:00; Stop 05/13/17 at 21:01; Status DC Aspirin ([employer] Aspirin) 325 mg DAILYWBKFT PO Last administered on 05/14/17 09: 35; Start 05/14/17 at 08:00 Simvastatin (Zocor) 10 mg QHS PO ; Start 05/14/17 at 21:00 Allergies Allergies: Coded Allergies: No Known Drug Allergies (Unverified , 05/13/17) Vitals VITALS Vital Signs Date Time Temp Pulse Resp B/P (MAP) Pulse Ox O2 Delivery O2 Flow Rate FiO2 05/14/17 15:08 98.8 60 19 121/62 (81) 96 Room Air 98.8 Labs Labs Laboratory Tests Test 05/13/17 14:44 05/13/17 16:00 05/13/17 18:45 05/14/17 03:30 White Blood Count 8.6 x10^3/uL (4.0-11.0) 7.4 x10^3/uL (4.0-11.0) Red Blood Count 5.29 x10^6/uL (4.30-5.70) 4.73 x10^6/uL (4.30-5.70) Hemoglobin 16.4 g/dL (13.0-17.5) 14.6 g/dL (13.0-17.5) Hematocrit 48.3 % (39.0-53.0) 43.9 % (39.0-53.0) Mean Corpuscular Volume 91 fL (79-100) 93 fL (79-100) Mean Corpuscular Hemoglobin 31 pg (25-35) 31 pg (25-35) Mean Corpuscular Hemoglobin Concent 34 g/dL (31-37) 33 g/dL (31-37) Red Cell Distribution Width 13.3 % (11.5-14.5) 13.0 % (11.5-14.5) Platelet Count 227 x10^3/uL (140-400) 218 x10^3/uL (140-400) Neutrophils (%) (Auto) 62 % (31-73) 50 % (31-73) Lymphocytes (%) (Auto) 28 % (24-48) 36 % (24-48) Monocytes (%) (Auto) 8 % (0-9) 11 % (0-9) Eosinophils (%) (Auto) 1 % (0-3) 2 % (0-3) Basophils (%) (Auto) 1 % (0-3) 1 % (0-3) Neutrophils # (Auto) 5.3 x10^3uL (1.8-7.7) 3.7 x10^3uL (1.8-7.7) Lymphocytes # (Auto) 2.4 x10^3/uL (1.0-4.8) 2.7 x10^3/uL (1.0-4.8) Monocytes # (Auto) 0.7 x10^3/uL (0.0-1.1) 0.8 x10^3/uL (0.0-1.1) Eosinophils # (Auto) 0.1 x10^3/uL (0.0-0.7) 0.1 x10^3/uL (0.0-0.7) Basophils # (Auto) 0.1 x10^3/uL (0.0-0.2) 0.1 x10^3/uL (0.0-0.2) Prothrombin Time 12.9 SEC (11.7-14.0) Prothromb Time International Ratio 1.0 (0.8-1.1) Activated Partial Thromboplast Time 35 SEC (24-38) Sodium Level 135 mmol/L (136-145) 139 mmol/L (136-145) Potassium Level 4.2 mmol/L (3.5-5.1) 3.8 mmol/L (3.5-5.1) Chloride Level 98 mmol/L (98-107) 103 mmol/L (98-107) Carbon Dioxide Level 23 mmol/L (21-32) 26 mmol/L (21-32) Anion Gap 14 (6-14) 10 (6-14) Blood Urea Nitrogen 13 mg/dL (8-26) 15 mg/dL (8-26) Creatinine 1.1 mg/dL (0.7-1.3) 1.1 mg/dL (0.7-1.3) Estimated GFR (Cockcroft-Gault) 66.0 66.0 BUN/Creatinine Ratio 12 (6-20) 14 (6-20) Glucose Level 97 mg/dL (70-99) 86 mg/dL (70-99) Lactic Acid Level 1.0 mmol/L (0.4-2.0) Calcium Level 9.1 mg/dL (8.5-10.1) 8.8 mg/dL (8.5-10.1) Magnesium Level 2.1 mg/dL (1.8-2.4) Total Bilirubin 0.7 mg/dL (0.2-1.0) 0.3 mg/dL (0.2-1.0) Aspartate Amino Transf (AST/SGOT) 20 U/L (15-37) 17 U/L (15-37) Alanine Aminotransferase (ALT/SGPT) 21 U/L (16-63) 18 U/L (16-63) Alkaline Phosphatase 128 U/L (46-116) 110 U/L (46-116) Ammonia < 10 mcmol/L (11-34) Troponin I Quantitative < 0.017 ng/mL (0.000-0.055) [id number]-Qzh-[id number]-Type Natriuretic Peptide 392 pg/mL (0-124) Total Protein 7.6 g/dL (6.4-8.2) 6.5 g/dL (6.4-8.2) Albumin 3.4 g/dL (3.4-5.0) 2.9 g/dL (3.4-5.0) Albumin/Globulin Ratio 0.8 (1.0-1.7) 0.8 (1.0-1.7) Lipase 58 U/L (73-393) Thyroid Stimulating Hormone (TSH) 1.112 uIU/mL (0.358-3.74) 1.236 uIU/mL (0.358-3.74) Salicylates Level 3.4 mg/dL (2.8-20.0) Salicylate Last Dose Date Salicylate Last Dose Time Acetaminophen Level < 2 mcg/ml (10-30) Acetaminophen Last Dose Date Acetaminophen Last Dose Time Ethyl Alcohol Level < 10 mg/dL (0-10) Urine Collection Type Unknown Urine Color Yellow Urine Clarity Clear Urine pH 5.5 Urine Specific [place] 1.010 Urine Protein Negative mg/dL (NEG-TRACE) Urine Glucose (UA) Negative mg/dL (NEG) Urine Ketones (Stick) 40 mg/dL (NEG) Urine Blood Negative (NEG) Urine Nitrite Negative (NEG) Urine Bilirubin Negative (NEG) Urine Urobilinogen Dipstick 0.2 mg/dL (0.2 mg/dL) Urine Leukocyte Esterase Negative (NEG) Urine RBC 0 /HPF (0-2) Urine WBC 1-4 /HPF (0-4) Urine Squamous Epithelial Cells None /LPF Urine Transitional Epithelial Cells Mod /LPF Urine Bacteria Few /HPF (0-FEW) Urine Mucus Mod /LPF Urine Opiates Screen Neg (NEG) Urine Methadone Screen Neg (NEG) Urine Barbiturates Neg (NEG) Urine Phencyclidine Screen Neg (NEG) Urine Amphetamine/Methamphetamine Neg (NEG) Urine Benzodiazepines Screen Neg (NEG) Urine Cocaine Screen Neg (NEG) Urine Cannabinoids Screen Neg (NEG) Urine Ethyl Alcohol Neg (NEG) Triglycerides Level 101 mg/dL (0-150) Cholesterol Level 182 mg/dL (0-200) LDL Cholesterol, Calculated 137 mg/dL (0-100) VLDL Cholesterol, Calculated 20 mg/dL (0-40) Non-HDL Cholesterol Calculated 157 mg/dL (0-129) HDL Cholesterol 25 mg/dL (40-60) Cholesterol/HDL Ratio 7.3 Laboratory Tests Test 05/14/17 03:30 White Blood Count 7.4 x10^3/uL (4.0-11.0) Red Blood Count 4.73 x10^6/uL (4.30-5.70) Hemoglobin 14.6 g/dL (13.0-17.5) Hematocrit 43.9 % (39.0-53.0) Mean Corpuscular Volume 93 fL (79-100) Mean Corpuscular Hemoglobin 31 pg (25-35) Mean Corpuscular Hemoglobin Concent 33 g/dL (31-37) Red Cell Distribution Width 13.0 % (11.5-14.5) Platelet Count 218 x10^3/uL (140-400) Neutrophils (%) (Auto) 50 % (31-73) Lymphocytes (%) (Auto) 36 % (24-48) Monocytes (%) (Auto) 11 % (0-9) Eosinophils (%) (Auto) 2 % (0-3) Basophils (%) (Auto) 1 % (0-3) Neutrophils # (Auto) 3.7 x10^3uL (1.8-7.7) Lymphocytes # (Auto) 2.7 x10^3/uL (1.0-4.8) Monocytes # (Auto) 0.8 x10^3/uL (0.0-1.1) Eosinophils # (Auto) 0.1 x10^3/uL (0.0-0.7) Basophils # (Auto) 0.1 x10^3/uL (0.0-0.2) Sodium Level 139 mmol/L (136-145) Potassium Level 3.8 mmol/L (3.5-5.1) Chloride Level 103 mmol/L (98-107) Carbon Dioxide Level 26 mmol/L (21-32) Anion Gap 10 (6-14) Blood Urea Nitrogen 15 mg/dL (8-26) Creatinine 1.1 mg/dL (0.7-1.3) Estimated GFR (Cockcroft-Gault) 66.0 BUN/Creatinine Ratio 14 (6-20) Glucose Level 86 mg/dL (70-99) Calcium Level 8.8 mg/dL (8.5-10.1) Total Bilirubin 0.3 mg/dL (0.2-1.0) Aspartate Amino Transf (AST/SGOT) 17 U/L (15-37) Alanine Aminotransferase (ALT/SGPT) 18 U/L (16-63) Alkaline Phosphatase 110 U/L (46-116) Total Protein 6.5 g/dL (6.4-8.2) Albumin 2.9 g/dL (3.4-5.0) Albumin/Globulin Ratio 0.8 (1.0-1.7) Triglycerides Level 101 mg/dL (0-150) Cholesterol Level 182 mg/dL (0-200) LDL Cholesterol, Calculated 137 mg/dL (0-100) VLDL Cholesterol, Calculated 20 mg/dL (0-40) Non-HDL Cholesterol Calculated 157 mg/dL (0-129) HDL Cholesterol 25 mg/dL (40-60) Cholesterol/HDL Ratio 7.3 RAMÍREZ TRAORE MD May 14, 2017 19:28
[2017-05-14 19:47] VITALS: BP 116/54
[2017-05-14] MEDS: SIMVASTATIN 10 MG TABLET PO SCH (20:06)
[2017-05-14] MEDS: HEPARIN PF for SUB-Q USE 5,000 UNIT/0.5 ML VIAL. SQ SCH (20:46)
[2017-05-14 23:18] VITALS: BP 115/59
[2017-05-15 02:35] VITALS: BP 119/71
[2017-05-15 07:00] VITALS: BP 116/63
[2017-05-15] MEDS: ASPIRIN 325 MG TABLET PO SCH (08:00)
--- NOTE | 2017-05-15 08:36 | RAD ---
Indication: Patient struggling to make words, confused. Technique: Study is dated May 15, 2017. Grayscale, color-flow, and spectral waveform analysis was performed. There is no comparison study available. Findings: Right Carotid: The 2 D images demonstrate mild plaquing and intimal thickening with no evidence of significant narrowing. The color images are normal without turbulence or jet effect. On the right the CCA Peak systolic velocity is 57 cm/sec, ICA peak systolic velocity is 65 cm/sec, and ICA end-diastolic velocity is 17 cm/sec. The ICA/CCA ratio is 1.1. Left Carotid: The 2 D images demonstrate mild plaquing and intimal thickening with no evidence of significant narrowing. The color images are normal without turbulence or jet effect. On the left the CCA Peak systolic velocity is 82 cm/sec, ICA peak systolic velocity is 95 cm/sec, and ICA end-diastolic velocity is 34 cm/sec. The ICA/CCA ratio is 1.2. Vertebral Arteries: Antegrade flow is noted within both vertebral arteries. All measurements follow NASCET methodology. Impression: Plaquing in the carotid bulbs along with intimal thickening. No evidence of a hemodynamically significant stenosis.
[2017-05-15] MEDS: HEPARIN PF for SUB-Q USE 5,000 UNIT/0.5 ML VIAL. SQ SCH ×2 (08:47→20:07)
[2017-05-15 11:07] VITALS: BP 113/64
--- NOTE | 2017-05-15 12:08 | PDOC ---
PROGRESS NOTES Chief Complaint Chief Complaint Encephalopathy ASSESSMENT AND PLAN: 1. Encephalopathy: 2/2 CVA 2. CVA: MRI with "Multiple small acute infarcts in a left MCA distribution". started on ASA, statin. bradycardia precludes BB. carrotid US w/o significant stenosis. echo pending 3. FTT: not functioning at home prior to CVA, now even more confused. will need placement. SW consult. OT PT eval 4. prophylaxis: heparin SQ History of Present Illness History of Present Illness awake, no c/o watching TV intently. Vitals Vitals Vital Signs Date Time Temp Pulse Resp B/P (MAP) Pulse Ox O2 Delivery O2 Flow Rate FiO2 05/15/17 11:07 98.6 50 16 113/64 (80) 95 Room Air 98.6 Physical Exam Physical Exam R facial droop; MS 5/5 x4 General: Alert, Cooperative, No acute distress, Other (disoriented) Heart: Regular rate Lungs: Clear Abdomen: Normal bowel sounds, Soft Extremities: No edema Skin: No rashes RICHARD RESTREPO MD May 15, 2017 12:08
--- NOTE | 2017-05-15 14:34 | PDOC ---
PROGRESS NOTES Assessment Assessment Acute/subacute multiple small infarct in the left MCA distribution, embolic etiology. Metabolic encephalopathy. HTN HLD RECOMMENDATIONS/PLAN: ASA 325 mg daily. Zocor 10 mg HS. Echo + Bubble study: Reports pending. May need to consult Cardiology if no carotid stenosis. Carotid A US + Doppler: Plaque in carotid bulbs, but not high grade. Brain MRI : see above infarcts. HISTORY OF THE PRESENT ILLNESS: 72-y-old male patient with above medical diseases was noted MS changes to be brought to the ER of [facility]. He was last seen normal 2 days prior to the day to be brought here. The patient was not able to provide history. No obvious motor deficit noted. Past Medical History Cardiovascular: HTN CENTRAL NERVOUS SYSTEM: Other (CVA seen on CT) ENT: No pertinent hx Renal/: No pertinent hx Endocrine: No pertinent hx Past Surgical History No pertinent history Family History No Significant Social History Smoke: No ALCOHOL: none ALLERGY: Unknown MEDICATIONS: Refer to MAR REVIEW OF SYSTEMS: Constitutional: No malnutrition, weight loss, cachexia. Head: No traumatic brain or head injury. Skin: No edema, or rash. Ear: No infection. Eyes: No vision loss or color blindness. Nose: No bleeding or purulent discharges. Hearing: Hearing decrease. Neck: No injury. Cardiac: HTN, HLD. Pulmonary: COPD. GI: No GI ulcer, GI bleeding. Urinary/genital: UTI. Endocrinologic: No cousin face, craniofacial dysmorphism, polydactyly. Skeletomuscular: No muscular atrophy, deformity. Neurological: see HP. Psychiatric: Denies drug use/abuse. Otherwise, not [id number] review of systems. PHYSICAL EXAMINATION: General appearance is in subacute distress. HEENT: Normocephalic and nontraumatic. Eyes, nose, ears, and throat are unremarkable. Neck is supple. No lymphadenopathy. No crepitus. Cardiovascular: S1, S2, regular rate and rhythm. Pulmonary: Clear to auscultation bilaterally. Abdomen: Bowel sounds are positive. Extremities: No rash, lesions, or edema. No restriction of range of motion NEUROLOGICAL EXAMINATION: Awake. Unable to communicate. Not oriented to time, place and person. PERRL. EOMI. CN: right side seemed mildly asymmetric. Muscle tone: within normal. Muscle strength: 5 DTR: 2 Plantar reflex: Neutral response bilaterally Gait: not examined in bed. Sensory exam: no abnormal findings. No obvious cerebellar signs elicited. F-T-N test not very accurate.. Objective Objective Vital Signs Date Time Temp Pulse Resp B/P (MAP) Pulse Ox O2 Delivery O2 Flow Rate FiO2 05/15/17 11:07 98.6 50 16 113/64 (80) 95 Room Air 98.6 Intake and Output 05/15/17 07:00 Intake Total 510 ml Balance 510 ml Intake Oral 510 ml # Voids 8 Vitals Signs Vitals VS - Last 72 Hours, by Label Date Time Temp Pulse Resp B/P (MAP) Pulse Ox O2 Delivery O2 Flow Rate FiO2 05/15/17 11:07 98.6 50 16 113/64 (80) 95 Room Air 98.6 05/15/17 08:00 Room Air 05/15/17 07:00 98.1 48 20 116/63 (80) 92 Room Air 98.1 05/15/17 02:35 98.2 47 20 119/71 (87) 95 Room Air 98.2 05/14/17 23:18 98.0 46 16 115/59 (77) 93 Room Air 98.0 05/14/17 20:00 Room Air 05/14/17 19:47 98.3 16 116/54 (74) 94 Room Air 98.3 05/14/17 15:08 98.8 60 19 121/62 (81) 96 Room Air 98.8 05/14/17 11:01 98.7 50 19 130/89 (103) 96 Room Air 98.7 05/14/17 08:00 Room Air 05/14/17 07:00 97.6 50 19 117/61 (79) 96 Room Air 97.6 Laboratory Laboratory Microbiology 05/13/17 Blood Culture - Preliminary, Resulted NO GROWTH AFTER 1 DAY Medication Medications Current Medications Heparin Sodium (Porcine) (Heparin Sq) 5,000 unit BID SQ Last administered on 08:47; Start 05/14/17 at 21:00 Simvastatin (Zocor) 10 mg QHS PO Last administered on 05/14/17 20:06; Start at 21:00 Comment Review of Relevant I have reviewed the following items nghia (where applicable) has been applied. RAMÍREZ TRAORE MD May 15, 2017 14:34
[2017-05-15 14:59] VITALS: BP 115/64
[2017-05-15 19:53] VITALS: BP 115/52
[2017-05-15] MEDS: SIMVASTATIN 10 MG TABLET PO SCH (20:04)
[2017-05-15 23:07] VITALS: BP 124/67
[2017-05-16 03:03] VITALS: BP 118/65
[2017-05-16 07:00] VITALS: BP 106/60
[2017-05-16] MEDS: ASPIRIN 325 MG TABLET PO SCH (07:42)
[2017-05-16] MEDS: HEPARIN PF for SUB-Q USE 5,000 UNIT/0.5 ML VIAL. SQ SCH ×2 (07:43→20:09)
--- NOTE | 2017-05-16 08:30 | PDOC ---
PROGRESS NOTES Assessment Problems Medical Problems: (1) Acute encephalopathy Status: Acute (2) Elevated brain natriuretic peptide (BNP) level Status: Acute Acute/subacute multiple small infarct in the left MCA distribution, embolic etiology. Metabolic encephalopathy. HTN HLD Echocardiogram report pending, cardiology consulted Plan ASA 325 mg daily. Zocor 10 mg HS. Patient also on heparin subcutaneous Subjective None Objective Vital Signs Date Time Temp Pulse Resp B/P (MAP) Pulse Ox O2 Delivery O2 Flow Rate FiO2 05/16/17 07:49 Room Air 05/16/17 07:00 97.7 63 18 106/60 (75) 97 97.7 Intake and Output 05/16/17 07:00 Intake Total 400 ml Balance 400 ml Intake Oral 400 ml # Voids 9 PHYSICAL EXAM Alert. Nonverbal, does not follow commands PERRL. EOMI. CN: no focal findings. Muscle tone: normal. Muscle strength: 4/5, worse on right DTR: 2+ Plantar reflex: flexor Gait: not examined in bed. Sensory exam: no abnormal findings. No cerebellar signs elicited. Review of Relevant I have reviewed the following items nghia (where applicable) has been applied. Labs Microbiology 05/13/17 Blood Culture - Preliminary, Resulted NO GROWTH AFTER 2 DAYS Medications Current Medications Sodium Chloride 1,000 ml @ 1,000 mls/hr 1X ONCE IV Last administered on 15:03; Start 05/13/17 at 14:45; Stop 05/13/17 at 15:44; Status DC Ondansetron HCl (Zofran) 4 mg PRN Q8HRS PRN IV NAUSEA/VOMITING; Start 05/13/17 at 16:15; Stop 05/14/17 at 16:14; Status DC Aspirin ([employer] Aspirin) 325 mg 1X ONCE PO Last administered on 05/13/17 21:52 ; Start 05/13/17 at 21:00; Stop 05/13/17 at 21:01; Status DC Aspirin ([employer]ail Aspirin) 325 mg DAILYWBKFT PO Last administered on 05/16/17 07: 42; Start 05/14/17 at 08:00 Simvastatin (Zocor) 10 mg QHS PO Last administered on 05/15/17 20:04; Start at 21:00 Heparin Sodium (Porcine) (Heparin Sq) 5,000 unit BID SQ Last administered on 8/ 21/17at 07:43; Start 05/14/17 at 21:00 Vitals/I & O Vital Sign - Last 24 Hours 05/15/17 05/15/17 05/15/17 05/15/17 11:07 14:59 19:53 20:00 Temp 98.6 97.7 98.5 98.6 97.7 98.5 Pulse 50 50 58 Resp 16 16 16 B/P (MAP) 113/64 (80) 115/64 (81) 115/52 (73) Pulse Ox 95 93 95 O2 Delivery Room Air Room Air Room Air Room Air 05/15/17 05/16/17 05/16/17 05/16/17 23:07 03:03 07:00 07:49 Temp 98.2 97.7 97.7 98.2 97.7 97.7 Pulse 47 46 63 Resp 16 16 18 B/P (MAP) 124/67 (86) 118/65 (82) 106/60 (75) Pulse Ox 95 95 97 O2 Delivery Room Air Room Air Room Air Room Air Intake and Output 05/15/17 05/15/17 05/16/17 15:00 23:00 07:00 Intake Total 400 ml 0 ml Balance 400 ml 0 ml LETTY SHAIKH MD May 16, 2017 08:30
[2017-05-16 11:00] VITALS: BP 115/67
--- NOTE | 2017-05-16 11:44 | PDOC2 ---
JAY OBRIEN MUD TANK OPERATOR 05/16/17 1144: CARDIAC CONSULT DATE OF CONSULT Date of Consult DATE: 05/16/17 TIME: 11:38 REASON FOR CONSULT Reason for Consult: embolic CVA REFERRING PHYSICIAN Referring Physician: Dr. Norris SOURCE Source: Chart review HISTORY OF PRESENT ILLNESS HISTORY OF PRESENT ILLNESS This is a 72 yo male who presented secondary to altered mental status. MRI brain notable for multiple small acute infarcts in a left MCA distribution with concern for embolic etiology, which prompted this consult. HPI obtain from chart review as patient is able to provided any information secondary to encephalopathy. Does follow commands but is unable to answer orientation questions appropriately. PAST MEDICAL HISTORY Cardiovascular: Hyperlipidemia Pulmonary: No pertinent hx GI: No pertinent hx Heme/Onc: No pertinent hx Hepatobiliary: No pertinent hx Psych: No pertinent hx Rheumatologic: No pertinent hx Infectious disease: No pertinent hx ENT: No pertinent hx Renal/: No pertinent hx Endocrine: No pertinent hx PAST SURGICAL HISTORY Past Surgical History: Other (unknown) FAMILY HISTORY Family History: Family History Unknown SOCIAL HISTORY Smoke: No ALCOHOL: none Drugs: None Lives: Alone ALLERGIES ALLERGIES: Coded Allergies: No Known Drug Allergies (Unverified , 05/13/17) ROS Review of System unobtainable. PHYSICAL EXAM General: Alert, Cooperative, No acute distress, Other (alert to self only) HEENT: Atraumatic, Mucous membr. moist/pink Lungs: Clear to auscultation, Normal air movement Heart: Normal S1, Normal S2, Other (regular rhythm, bradycardic) Abdomen: Soft, No tenderness Extremities: No edema, Normal pulses Skin: No breakdown, No significant lesion Neuro: Sensation intact Psych/Mental Status: Other (confused, flat affect ) MUSCULOSKELETAL: Osteoarthritic changes both hands VITALS VITALS Vital Signs Date Time Temp Pulse Resp B/P (MAP) Pulse Ox O2 Delivery O2 Flow Rate FiO2 05/16/17 11:00 98.0 47 18 115/67 (83) 96 Room Air 98.0 ASSESSMENT/PLAN ASSESSMENT/PLAN 1. Embolic CVA; source ? 2. Hyperlipidemia 3. Sinus bradycardia 4. Metabolic encephalopathy Recommendations Echo pending Place on telemetry Anticoagulated with ASA and heparin presently Avoid AV arian blocking agents Further recommendations pending diagnostics. Consider event monitor upon discharge if above is unrevealing Will likely need higher level of care upon discharge Problems: DENNIS BRAGA MD 05/16/17 1547: CARDIAC CONSULT ALLERGIES ALLERGIES: Coded Allergies: No Known Drug Allergies (Unverified , 05/13/17) ASSESSMENT/PLAN ASSESSMENT/PLAN Patient seen and examined. Agree with HOME ORGANIZER's assessment and plan. 2-D echo with bubble study pending. Plan for event monitor on discharge to rule out atrial fibrillation as an etiology for embolic stroke. Thank you for your consultation. Problems: JAY OBRIEN APRN May 16, 2017 11:44 DENNIS BRAGA MD May 16, 2017 15:47
--- NOTE | 2017-05-16 12:09 | PDOC ---
PROGRESS NOTES Chief Complaint Chief Complaint Encephalopathy 1. Encephalopathy: 2/2 CVA 2. CVA: MRI with "Multiple small acute infarcts in a left MCA distribution" 3. FTT: not functioning at home prior to CVA, now even more confused. History of Present Illness History of Present Illness Pt is awake in bed, no complaints, watching TV. Per Daughter in law, Pat, pt is back to baseline but concerned pt lives alone and will need assisted care. Vitals Vitals Vital Signs Date Time Temp Pulse Resp B/P (MAP) Pulse Ox O2 Delivery O2 Flow Rate FiO2 05/16/17 11:00 98.0 47 18 115/67 (83) 96 Room Air 98.0 Physical Exam Physical Exam R facial droop; MS 5/5 x4 General: Alert, Cooperative, No acute distress, Other (disoriented) Heart: Regular rate, No murmurs Lungs: Clear Abdomen: Normal bowel sounds, Soft Extremities: No clubbing, No edema Skin: No rashes, No breakdown Review of Systems Review of Systems Pt is confused, unable to communicate the current year. No acute distress Assessment and Plan Assessmemt and Plan Problems Medical Problems: (1) Acute encephalopathy Status: Acute (2) Elevated brain natriuretic peptide (BNP) level Status: Acute 1. Acute Encephalopathy: 2/2 CVA 2. CVA: MRI with "Multiple small acute infarcts in a left MCA distribution". started on ASA, statin. bradycardia precludes BB. carotid US w/o significant stenosis. echo pending 3. FTT: not functioning at home prior to CVA, now even more confused. will need placement. SW consult. OT PT eval 4. prophylaxis: heparin SQ 5. Elevated BNP level 6. Consult Cryptoanalysis Teacher for SNU evaluation, assisted care/assisted living facility Problems: Comment Review of Relevant I have reviewed the following items nghia (where applicable) has been applied. Labs Microbiology 05/13/17 Blood Culture - Preliminary, Resulted NO GROWTH AFTER 2 DAYS Medications Current Medications Sodium Chloride 1,000 ml @ 1,000 mls/hr 1X ONCE IV Last administered on t 15:03; Start 05/13/17 at 14:45; Stop 05/13/17 at 15:44; Status DC Ondansetron HCl (Zofran) 4 mg PRN Q8HRS PRN IV NAUSEA/VOMITING; Start 05/13/17 at 16:15; Stop 05/14/17 at 16:14; Status DC Aspirin ([employer] Aspirin) 325 mg 1X ONCE PO Last administered on 05/13/17 21:52 ; Start 05/13/17 at 21:00; Stop 05/13/17 at 21:01; Status DC Aspirin (Sohail Aspirin) 325 mg DAILYWBKFT PO Last administered on 05/16/17 07: 42; Start 05/14/17 at 08:00 Simvastatin (Zocor) 10 mg QHS PO Last administered on 05/15/17 20:04; Start at 21:00 Heparin Sodium (Porcine) (Heparin Sq) 5,000 unit BID SQ Last administered on 07:43; Start 05/14/17 at 21:00 Vitals/I & O Vital Sign - Last 24 Hours 05/15/17 05/15/17 05/15/17 05/15/17 14:59 19:53 20:00 23:07 Temp 97.7 98.5 98.2 97.7 98.5 98.2 Pulse 50 58 47 Resp 16 16 16 B/P (MAP) 115/64 (81) 115/52 (73) 124/67 (86) Pulse Ox 93 95 95 O2 Delivery Room Air Room Air Room Air Room Air 05/16/17 05/16/17 05/16/17 05/16/17 03:03 07:00 07:49 11:00 Temp 97.7 97.7 98.0 97.7 97.7 98.0 Pulse 46 63 47 Resp 16 18 B/P (MAP) 118/65 (82) 106/60 (75) 115/67 (83) Pulse Ox 95 97 96 O2 Delivery Room Air Room Air Room Air Room Air Intake and Output 05/15/17 05/15/17 05/16/17 15:00 23:00 07:00 Intake Total 400 ml 0 ml Balance 400 ml 0 ml SATINDER DURHAM III DO May 16, 2017 12:09
[2017-05-16 15:00] VITALS: BP 155/65
--- NOTE | 2017-05-16 16:39 | CARD ---
APPROVED REPORT EXAM: Two-dimensional and M-mode echocardiogram with Doppler and color Doppler. Other Information Quality : AverageHR: 52bpm Rhythm : Bradycardia INDICATION CVA/TIA 2D DIMENSIONS RVDd3.3 (2.9-3.5cm)Left Atrium(2D)3.7 (1.6-4.0cm) IVSd1.0 (0.7-1.1cm)Aortic Root(2D)3.2 (2.0-3.7cm) LVDd4.7 (3.9-5.9cm)LVOT Diameter2.2 (1.8-2.4cm) PWd0.9 (0.7-1.1cm)LVDs3.1 (2.5-4.0cm) FS (%) 34.3 %SV64.2 ml LVEF(%)63.3 (>50%) Aortic Valve AoV Peak Vidal.116.3cm/sAoV VTI24.4cm AO Peak GR.5.4mmHgLVOT Peak Vidal.122.2cm/s AO Mean GR.3mmHgAVA (VMAX)4.05cm2 Mitral Valve MV E Biueypdh60.4cm/sMV DECEL CFXT095lo MV A Ggtlriab71.8cm/sE/A Ratio0.7 MV A Dylgqaaq855cx Pulmonary Valve PV Peak Tpuwowkd93.9cm/s Tricuspid Valve TR P. Jubxiptl054mk/sTR Peak Gr.27mmHg Pulmonary Vein S1 Koalrnyv95.7cm/sD2 Dzogpnlz22.9cm/s PVa noktcrhb17pqla LEFT VENTRICLE The left ventricle is normal size. There is normal left ventricular wall thickness. The left ventricu lar systolic function is normal and the ejection fraction is within normal range. The Ejection Fracti on is 50-55%. There is normal LV segmental wall motion. Septal motion consistent with conduction abno rmality. Transmitral Doppler flow pattern is Grade I-abnormal relaxation pattern. No left ventricle t hrombus noted on this study. There is no ventricular septal defect visualized. RIGHT VENTRICLE The right ventricle is normal size. There is normal right ventricular wall thickness. The right ventr icular systolic function is normal. ATRIA The left atrium size is normal. The right atrium size is normal. The interatrial septum is intact wit h no evidence for an atrial septal defect or patent foramen ovale as noted on 2-D or Doppler imaging. AORTIC VALVE The aortic valve is mildly sclerotic. The aortic valve is trileaflet. Doppler and Color Flow revealed trace aortic regurgitation. There is no significant aortic valvular stenosis. MITRAL VALVE The mitral valve is not well visualized but appears to opens adequately. There is no evidence of mitr al valve prolapse. There is no mitral valve stenosis. Doppler and Color Flow revealed no mitral valve regurgitation noted. TRICUSPID VALVE Doppler and Color Flow revealed trace tricuspid regurgitation. The pulmonary artery systolic pressure is estimated at 30 mmHg. There is mild pulmonary hypertension. PULMONIC VALVE The pulmonic valve is not well visualized but appears to open adequately. Doppler and Color Flow reve aled no pulmonic valvular regurgitation. There is no pulmonic valvular stenosis by spectral Doppler. GREAT VESSELS The aortic root is normal in size. The ascending aorta is normal in size. The pulmonary artery is nor mal. The IVC is normal in size and collapses >50% with inspiration. PERICARDIAL EFFUSION There is no evidence of significant pericardial effusion. Critical Notification Critical Value: No <Conclusion> The left ventricular systolic function is normal and the ejection fraction is within normal range. Th e Ejection Fraction is 50-55%. There is normal LV segmental wall motion. Septal motion consistent with conduction abnormality. Technically difficult study.
[2017-05-16 19:28] VITALS: BP 134/69
[2017-05-16] MEDS: SIMVASTATIN 10 MG TABLET PO SCH (20:07)
[2017-05-16 22:51] VITALS: BP 135/82
[2017-05-17 03:48] VITALS: BP 126/70
[2017-05-17 07:00] VITALS: BP 140/70
[2017-05-17] MEDS: ASPIRIN 325 MG TABLET PO SCH (07:52)
[2017-05-17] MEDS: HEPARIN PF for SUB-Q USE 5,000 UNIT/0.5 ML VIAL. SQ SCH (07:58)
[2017-05-17 11:00] VITALS: BP 128/60
--- NOTE | 2017-05-17 11:38 | PDOC ---
CARDIO Progress Notes Date and Time Date of Service 05/17/17 Time of Evaluation 1115 Subjective Subjective: No Chest Pain, No shortness of breath Vitals Vitals Vital Signs Date Time Temp Pulse Resp B/P (MAP) Pulse Ox O2 Delivery O2 Flow Rate FiO2 05/17/17 11:00 98.0 49 18 128/60 (82) 96 Room Air 98.0 Weight Weight [ ] Input and Output Intake and Output Intake and Output 05/17/17 07:00 Intake Total 500 ml Balance 500 ml Intake Oral 500 ml # Voids 4 Microbiology Micro Microbiology 05/13/17 Blood Culture - Preliminary, Resulted NO GROWTH AFTER 3 DAYS Physical Exam HEENT: Neck Supple W Full Motion Chest: Symmetric LUNGS: Clear to Auscultation Heart: S1S2, no murmurs, other (tele sinus lara) Abdomen: Soft N/T Extremities: No Edema, No Calf Tenderness Neurology: alert (to self only ), follow commands, confused Assessment Assessment 1. Embolic CVA; source ? Echo without evidence of an atrial septal defect or patent foramen ovale. Telemetry shows sinus bradycardia. No significant arrhythmias noted. Continue ASA. Will set up with outpatient event monitor to rule out atrial fibrillation as an etiology for embolic stroke. F/u in our office in 4 weeks as scheduled. 2. Hyperlipidemia; statin therapy 3. Sinus bradycardia, asymptomatic. Avoid AV arian blocking agents 4. Metabolic encephalopathy JAY OBRIEN APRN May 17, 2017 11:38
--- NOTE | 2017-05-17 12:44 | PDOC ---
PROGRESS NOTES Chief Complaint Chief Complaint Encephalopathy 1. Encephalopathy: 2/2 CVA 2. CVA: MRI with "Multiple small acute infarcts in a left MCA distribution" 3. FTT: not functioning at home prior to CVA History of Present Illness History of Present Illness Pt is walking w/ assistance. Amenable to SNU Vitals Vitals Vital Signs Date Time Temp Pulse Resp B/P (MAP) Pulse Ox O2 Delivery O2 Flow Rate FiO2 05/17/17 11:00 98.0 49 18 128/60 (82) 96 Room Air 98.0 Physical Exam General: Alert, Cooperative, No acute distress, Other (alert to self only) Heart: Normal S1, Normal S2, Other (regular rhythm, bradycardic) Lungs: Clear, Other (No acute respiratory distress) Abdomen: Soft, No tenderness Extremities: No edema, Normal pulses Skin: No rashes, No breakdown, No significant lesion Review of Systems Review of Systems Pt c/o hunger Pt c/o weakness Assessment and Plan Assessmemt and Plan 1. Acute Encephalopathy: 2/2 CVA 2. CVA: MRI with "Multiple small acute infarcts in a left MCA distribution". started on ASA (325 mg), statin. bradycardia precludes BB. carotid US w/o significant stenosis. 3. FTT: not functioning at home prior to CVA, 4. Prophylaxis: heparin SQ 5. Elevated BNP level 6. Transfer pt to SNU Problems: Comment Review of Relevant I have reviewed the following items nghia (where applicable) has been applied. Labs Microbiology 05/13/17 Blood Culture - Preliminary, Resulted NO GROWTH AFTER 3 DAYS Medications Current Medications Sodium Chloride 1,000 ml @ 1,000 mls/hr 1X ONCE IV Last administered on 15:03; Start 05/13/17 at 14:45; Stop 05/13/17 at 15:44; Status DC Ondansetron HCl (Zofran) 4 mg PRN Q8HRS PRN IV NAUSEA/VOMITING; Start 05/13/17 at 16:15; Stop 05/14/17 at 16:14; Status DC Aspirin ([employer] [place] Aspirin) 325 mg 1X ONCE PO Last administered on 05/13/17 21:52 ; Start 05/13/17 at 21:00; Stop 05/13/17 at 21:01; Status DC Aspirin (Sohail Aspirin) 325 mg DAILYWBKFT PO Last administered on 05/17/17 07: 52; Start 05/14/17 at 08:00 Simvastatin (Zocor) 10 mg QHS PO Last administered on 05/16/17 20:07; Start at 21:00 Heparin Sodium (Porcine) (Heparin Sq) 5,000 unit BID SQ Last administered on 07:58; Start 05/14/17 at 21:00 Vitals/I & O Vital Sign - Last 24 Hours 05/16/17 05/16/17 05/16/17 05/16/17 15:00 19:15 19:28 22:51 Temp 97.7 98.4 98.0 97.7 98.4 98.0 Pulse 47 59 51 Resp 18 18 18 B/P (MAP) 155/65 (95) 134/69 (90) 135/82 (99) Pulse Ox 94 95 94 O2 Delivery Room Air Room Air Room Air Room Air 05/17/17 05/17/17 05/17/17 05/17/17 03:48 07:00 08:04 11:00 Temp 98.1 97.5 98.0 98.1 97.5 98.0 Pulse 48 46 49 Resp 18 18 18 B/P (MAP) 126/70 (88) 140/70 (93) 128/60 (82) Pulse Ox 96 97 96 O2 Delivery Room Air Room Air Room Air Room Air Intake and Output 05/16/17 05/16/17 05/17/17 15:00 23:00 07:00 Intake Total 300 ml 200 ml Balance 300 ml 200 ml SATINDER DURHAM III DO May 17, 2017 12:44
[2017-05-17 14:36] VITALS: BP 147/69
== END 2017-05-17 14:40 | DRG 64 ==
LOC: ER 14:25 → 6 SOUTH 16:01
PROVIDERS: ADMIT Internal Medicine; ATTEND Internal Medicine
DX: I63.412 Cerebral infarction due to embolism of left middle cerebral artery (principal); G93.41 Metabolic encephalopathy; R62.7 Adult failure to thrive; I10 Essential (primary) hypertension; E78.5 Hyperlipidemia, unspecified; I73.9 Peripheral vascular disease, unspecified; Z86.73 Personal history of transient ischemic attack (TIA), and cerebral infarction without residual deficits; Z79.82 Long term (current) use of aspirin; Z79.899 Other long term (current) drug therapy
CPT/HCPCS: 36415; 51701; 70450; 70551; 80053; 80061; 80307; 80329; 81001; 82140; 82607; 83605; 83690; 83735; 83880; 84443; 84484; 85025; 85610; 85730; 87040; 93005; 93306; 93880; 96360; G0480; J7030; 92610; 97110; 97116; 97535; 99285-25; G0479

== ENCOUNTER 2019-12-18 06:47 | Outpatient (CLI) | payer MEDICARE ==
[~2019-12-18] VITALS: Ht 172.7 cm; Wt 66.2 kg
[2019-12-18] VITALS (13 sets, daily range): BP systolic 92–142; BP diastolic 45–75
[2019-12-18] MEDS ORDERED: IV NORMAL SALINE 1000ML BAG 1,000 ML IV SCH (07:12)
[2019-12-18] MEDS ORDERED: [UNRECOGNIZED DRUG - CODE] PO (07:23)
[2019-12-18] MEDS ORDERED: SIMV80TA17 PO (07:23)
[2019-12-18] MEDS ORDERED: VITA100T PO (07:23)
[2019-12-18] MEDS ORDERED: CHOL-5 PO (07:23)
[2019-12-18] MEDS ORDERED: ASPI81TA50 PO (07:23)
[2019-12-18] MEDS ORDERED: CLOP75TA PO (07:23)
[2019-12-18] MEDS ORDERED: LIDOCAINE 1% Multi-Dose 20 ML VIAL. ONE (07:30)
[2019-12-18] MEDS ORDERED: IODIXANOL 320 MG/ML 100 ML VIAL. ONE (07:30)
[2019-12-18 07:38] LABS: HEMATOCRIT 42.5 % (39.0-53.0); RED BLOOD COUNT 4.67 x10^6/uL (4.30-5.70); RED CELL DISTRIBUTION WIDTH 14.2 % (11.5-14.5); WHITE BLOOD COUNT 7.5 x10^3/uL (4.0-11.0)
[2019-12-18 07:44] LABS: CALCIUM 9.3 mg/dL (8.5-10.1); CREATININE 1.1 mg/dL (0.7-1.3); GFR 65.6; POTASSIUM 3.6 mmol/L (3.5-5.1)
[2019-12-18 08:08] LABS: PROTHROMBIN TIME PATIENT 11.7 SEC (11.7-14.0)
[2019-12-18] MEDS ORDERED: MIDAZOLAM HCL/PF 5 MG/5 ML VIAL. ONE (08:13)
[2019-12-18] MEDS ORDERED: fentaNYL PF VIAL 100 MCG/2 ML VIAL ONE (08:14)
[2019-12-18] MEDS ORDERED: HEPARIN for IV BOLUS 10,000 UNIT/10 ML VIAL. ONE (08:14)
[2019-12-18] MEDS ORDERED: fentaNYL PF VIAL 100 MCG/2 ML VIAL IV ONE (09:00)
[2019-12-18] MEDS ORDERED: MIDAZOLAM HCL/PF 5 MG/5 ML VIAL. IV ONE (09:00)
[2019-12-18] MEDS ORDERED: LIDOCAINE 1% Multi-Dose 20 ML VIAL. INJ ONE (09:00)
[2019-12-18] MEDS ORDERED: IODIXANOL 320 MG/ML 100 ML VIAL. IART ONE (09:00)
--- NOTE | 2019-12-18 09:49 | EKG ---
[address] [place] [address] Test Date: 2019-12-18 Test Time: 09:47:57 Pat Name: RUPERTO APPLE Department: Room: Gender: M Equities Trader: JAMIA : 1945 Requested By: DENNIS BRAGA Order Number: [id number] Reading MD: Measurements Intervals [place] Rate: 45 P: MI: QRS: 0 QRSD: 86 T: 34 QT: 492 QTc: 424 Interpretive Statements JUNCTIONAL RHYTHM LEFTWARD AXIS LOW LIMB LEAD VOLTAGE ABNORMAL ECG RI6.02 Compared to ECG 05/13/2017 14:30:59 Junctional rhythm now present Sinus rhythm no longer present Myocardial infarct finding no longer present
[2019-12-18] MEDS ORDERED: IV 1/2 NORMAL SALINE 1,000 ML IV SCH (09:51)
--- NOTE | 2019-12-18 09:51 | PDOC ---
MODERATE SEDATION ASSESSMENT RISKS/ALTERNATIVES Risks/Alternatives Risks and alternatives of this type of sedation and procedure discussed with: RISK/ALTERNATIVES: Patient H & P ON CHART H & P H & P on chart and reviewed for co-morbid conditions and appropriate labs. H&P ON CHART: Yes STATUS PREG STATUS ASSESSED: N/A MEDS/ALLERGIES REVIEWED Meds/Allergies Reviewed Medications and Allergies including time and route of recently administered narcotics and sedatives. MEDS/ALLERGIES REVIEWED: Yes ASA RATING ASA RATING: II AIRWAY ASSESSMENT Airway Assessment Airway patency, oral function limitations, presence of caps, crowns, dentures, partials, and ability to extend neck assessed. AIRWAY ASSESSMENT: Yes MALLAMPATI SCORE MALLAMPATI SCORE: II PRE-SEDATION ASSESSMENT PRE-SEDATION ASSESSMENT: Yes DENNIS BRAGA MD Dec 18, 2019 09:51
[2019-12-18] MEDS ORDERED: NITROGLYCERIN SUBLINGUAL 0.4 MG BOTTLE OF 25. SL PRN (10:00)
--- NOTE | 2019-12-18 10:32 | CARD ---
MR#: [id number] Date of Study: 12/18/2019 Ordering Physician: DENNIS DUMONT, Referring Physician: DENNIS DUMONT Tech: Sachi Sundeep APPROVED REPORT Patient StatusOUT-PATIENT Compensation Intern: Sachi Urbano Procedure(s) performed: Aortogram with bilateral lower extremity runoff fl time: 1.7 mins dose: 26 gycm2 contrast: 59 ml moderate sedation: 44 minutes INDICATION FOR PROCEDURE The indication(s) include : Claudication and abnormal BREE's. PROCEDURE NARRATIVE After explaining the risks, benefits and alternative options, informed consent was obtained from hunter ent. Patient was brought to the cardiac Manhole Stripper and his right groin was prepped and draped in the us ual fashion. 20 mL of 2% lidocaine was infiltrated into the skin and subcutaneous tissues for local a nesthesia. Arterial access was obtained in the right common femoral artery and a 5 Angolan sheath was inserted. 5 Angolan pigtail catheter was used to perform aortogram with bilateral lower extremity runo ff. Patient tolerated the procedure well. Hemostasis was achieved using mynx closure device. There we re no immediate complications. FINDINGS 1. No significant stenosis involving the distal descending aorta. 2. 30% stenoses involving bilateral common iliac arteries. 3. No significant stenosis involving bilateral external iliac arteries. 4. No significant stenosis involving bilateral common femoral arteries. 5. 30% stenosis involving the distal segment of the left superficial femoral artery. No significant stenosis involving the right superficial femoral artery. 6. No significant stenosis involving bilateral popliteal arteries. 7. There is three-vessel runoff below the knee bilaterally in the proximal to midsegments. The dist al segments are not well visualized. Conclusion No significant peripheral artery stenosis. Signed by : Dennis Dumont, Electronically Approved : 12/18/2019 10:31:29
--- NOTE | 2019-12-18 11:55 | CARD ---
MR#: [id number] Date of Study: 12/18/2019 Ordering Physician: DENNIS DUMONT, Referring Physician: DENNIS DUMONT, Tech: Sandra Corrigan APPROVED REPORT EXAM: Two-dimensional and M-mode echocardiogram with Doppler and color Doppler. Other Information Quality : AverageHR: 54bpm Technically limited study due to Patient supine INDICATION PAD 2D DIMENSIONS Left Atrium(2D)4.3 (1.6-4.0cm)IVSd1.1 (0.7-1.1cm) Aortic Root(2D)3.2 (2.0-3.7cm)LVDd5.3 (3.9-5.9cm) LVOT Diameter2.3 (1.8-2.4cm)PWd1.1 (0.7-1.1cm) LVDs3.6 (2.5-4.0cm)FS (%) 32.4 % SV82.7 mlLVEF(%)60.2 (>50%) Aortic Valve AoV Peak Vidal.120.1cm/sAoV VTI38.2cm AO Peak GR.5.8mmHgLVOT VTI 23.71cm AO Mean GR.5mmHg Mitral Valve MV E Rwurvndd32.0cm/sMV E Peak Gr.3mmHg MV DECEL [id number] A Axzqzmbl19.2cm/s MV E Mean Gr.1mmHgE/A Ratio1.8 TDI Lateral E' P. V12.87cm/sMedial E' P. V11.52cm/s E/Lateral E'5.8E/Medial E'6.5 Tricuspid Valve TR P. Etjuvxou777iu/sRAP JNTOXJKZ1awCx TR Peak Gr.56xrCzZHFO49meIa Pulmonary Vein S1 Gluyfunx14.1cm/sS2 Qvsmkhkd08.78cm/s D2 Tkiyacwq97.8cm/sPVa lkbolnzf260lfmh LEFT VENTRICLE The left ventricle is normal size. There is borderline to mild concentric left ventricular hypertroph y. The left ventricular systolic function is normal. The Ejection Fraction is 55-60%. There is normal LV segmental wall motion. RIGHT VENTRICLE The right ventricle is normal size. There is normal right ventricular wall thickness. The right ventr icular systolic function is normal. ATRIA The left atrium size is normal. The right atrium is mildly dilated. The interatrial septum is intact with no evidence for an atrial septal defect or patent foramen ovale as noted on 2-D or Doppler imagi ng. AORTIC VALVE The aortic valve is not well visualized. Doppler and Color Flow revealed no significant aortic regurg itation. There is no significant aortic valvular stenosis. MITRAL VALVE The mitral valve is normal in structure and function. There is no evidence of mitral valve prolapse. There is no mitral valve stenosis. Doppler and Color-flow revealed trace mitral regurgitation. TRICUSPID VALVE The tricuspid valve is not well visualized. Doppler and Color Flow revealed mild tricuspid regurgitat ion with an estimated PAP of 36 mmHg. There is no tricuspid valve stenosis. PULMONIC VALVE The pulmonic valve is not well visualized. Doppler and Color Flow revealed no pulmonic valvular regur gitation. GREAT VESSELS The aortic root is normal in size. The IVC was not visualized. PERICARDIAL EFFUSION There is no evidence of significant pericardial effusion. Critical Notification Critical Value: No <Conclusion> The left ventricular systolic function is normal. The Ejection Fraction is 55-60%. There is normal LV segmental wall motion. Trace mitral regurgitation. Mild tricuspid regurgitation with an estimated PAP of 36 mmHg. There is no evidence of significant pericardial effusion. Signed by : Dennis Dumont, Electronically Approved : 12/18/2019 11:54:48
--- NOTE | 2019-12-18 13:15 | NUR ---
pt A& O x4. denies pain , nausea or dizziness. VSS. rt groin site had been oozing a little at 1045. dressing removed, pressure held for 3 minutes. site continues to well up with blood when pressure removed. a small gauze roll was placed at site. no further oozing noted. dressing remain clean and dry at this time. no other swelling noted around site. pt tolerated po well. ambulated to BR w/o problem. family here to take pt home. d/c instructions reviewed w/ pt and dtr-in-law. questions answered. pt out to vehicle per w/c.
== END 2019-12-18 13:10 | disposition home or self-care (01) ==
LOC: CCL 06:47
PROVIDERS: ATTEND Internal Medicine Cardiovascular Disease
DX: I70.213 Atherosclerosis of native arteries of extremities with intermittent claudication, bilateral legs (principal); I08.1 Rheumatic disorders of both mitral and tricuspid valves; Z79.899 Other long term (current) drug therapy
CPT/HCPCS: 36415; 75630; 80048; 85027; 85610; 93005; 93306; 99152; 99153; C1713; C1769; C1892; G0269; J1644; J2250; J3010; J3490; J7030; Q9967

== ENCOUNTER → 2020-05-29 | Outpatient (CLI) | payer MEDICARE ==
[2019-12-18 12:25] VITALS: BP 137/57
[~2020-05-29] MED LIST: ASPI81TA50 PO; CHOL-5 PO; CLOP75TA PO; SIMV80TA17 PO; VITA100T PO; [UNRECOGNIZED DRUG - CODE] PO
--- NOTE | 2020-05-29 12:12 | CARD ---
MR#: [id number] Date of Study: 05/29/2020 Ordering Physician: DENNIS DUMONT, Referring Physician: DENNIS DUMONT, Tech: APPROVED REPORT PROCEDURE: Successful implantation of [employer] Linq loop recorder INDICATIONS: Stroke of uncertain etiology r/o atrial fibrillation PROCEDURE DETAILS: An informed consent was obtained from patient. Patient was brought to the procedure suite and her le ft chest and shoulder were prepped and draped in the usual fashion. 20 mL of 2% lidocaine was infilt rated into the skin and subcutaneous tissues for local anesthesia. An incision was made in the left fourth intercostal space 1 inch from midsternal line and using the introducer and deployer provided w ith the kit a [employer] Linq loop recorder serial number [id number] was placed in the subcutaneous ti ssue. The incision was closed in one layer. Hemostasis was secured. Patient tolerated the procedur e well. There were no immediate complications. CONCLUSION: Successful implantation of [employer] Linq loop recorder for stroke of uncertain etiology to rule out any significant arrhythmias. Signed by : Dennis Dumont, Electronically Approved : 05/29/2020 12:12:21
== END | disposition home or self-care (01) ==
LOC: LINQ 11:20
PROVIDERS: ATTEND Internal Medicine Cardiovascular Disease
DX: I63.89 Other cerebral infarction (principal); Z79.82 Long term (current) use of aspirin; Z79.899 Other long term (current) drug therapy; Z87.891 Personal history of nicotine dependence; Z80.0 Family history of malignant neoplasm of digestive organs
CPT/HCPCS: 33285; C1764

== ENCOUNTER → 2020-07-17 | Outpatient (CLI) | payer MEDICARE ==
[2019-12-18 12:25] VITALS: BP 137/57
[~2020-07-17] MED LIST changes: +REGADENOSON 0.4 MG/5 ML DISP.SYRIN. IV ONE
--- NOTE | 2020-07-17 17:43 | RAD ---
MR#: [id number] Date of Study: 07/17/2020 Ordering Physician: DENNIS BRAGA, Referring Physician: TOM PENA Tech: RT Daya (R) (N) APPROVED REPORT Test Type: Pharmacological Stress Nurse/Tech: Harini Hernandez R.N. Test Indications: a fib Cardiac History: No known cardiac Medications: See Electronic Medical Record Medical History: See Electronic Medical Record Resting ECG: s. lara Resting Heart Rate: 46 bpm Resting Blood Pressure: 136/56mmHg Pretest Chest Pain: No chest pain Nurse/Tech Notes S1S2, lungs sound clear Consent: The procedure was explained to the patient in lay terms. Informed consent was witnessed. Marcial eout was entered into [employer]. History and Stress Test performed by Harini Hernandez R.N. Pharm. Details Pharmacologic stress testing was performed using 0.4mg per 5ml of regadenoson given intravenously ove r 7-10 seconds. Stress Symptoms No chest pain or symptoms. POST EXERCISE Reason for Termination: Infusion complete Target HR: 124 Max HR: 85 bpm Max Blood Pressure: 133/52mmHg Blood Pressure response to exercise: Normal blood pressure response during stress. Chest Pain: No. Arrhythmia: Yes. occ PAC ST Change: No. INTERPRETATION Stress EKG Conclusion: No evidence of ischemia. Imaging Protocol IMAGE PROTOCOL: Rest Tc-99m/stress Tc-99m 1 day Rest: Stress: Viability: Radiopharm.Tc99m CeikbkhazTx70o Sestamibi Dose10.5mCi 33mCi Duration 15min. 10min. Img Date 07/17/2020 07/17/2020 Inj-Img Moke22jue. 60min. Rest Admin Site:IV - Right AntecubitalAdministrator:RT Daya (R)(N) Stress Admin Site: IV - Right AntecubitalAdministrator: TOM MariTCDanny, ARRT (R)(N) STRESS DATA End Diast. Vol.129.0mlAv. Heart Rate56.0bpm End Syst. Vol.37.0mlCO Index BSA0.0L/min Myocardial Kbvo229.0gEject. Kjtrzpaz38.0% Stress Rates Pk. Fill Rate2.08EDV/secLVtime Pk. Fill 172.28msec Pk. Empty Rate2.95ESV/secLVtime Pk. Mmpqv494.59msec 1/3 Pk. Fill1.35EDV/sec Stress Scores Regional WT0.00Summed WT3.00 Regional WM0.00Summed WM0.00 LV Perfusion Normal perfusion at stress. Subdiaphragmatic artifact at rest. Wall Motion Normal wall motion. EF > 60% LV Perf. Quant 17 Seg. SSS0.00 17 Seg. SRS3.00 17 Seg. SDS0.00 Stress Defect Extent (% LAD)0.00Rest Defect Extent (% LAD)3.10Rev. Defect Extent (% LAD)0.00 Stress Defect Extent (% LCX) 0.00Rest Defect Extent (% LCX)0.00Rev. Defect Extent (% LCX)0.00 Stress Defect Extent (% RCA)0.00Rest Defect Extent (% RCA)28.90Rev. Defect Extent (% RCA)0.00 Stress Defect Extent (% JEOVANY)0.00Rest Defect Extent (% JEOVANY)9.60Rev. Defect Extent (% JEOVANY)0.00 Other Information Quality:Fair Risk Assessment: Low Risk Conclusion 1. No evidence of stress induced EKG changes. 2. Normal perfusion at stress. No ischemia/infarct. 3. Subdiaphramgatic attenuation artifact at rest, images suboptimal. 4. Normal EF at > 60% 5. Low risk study overall. Signed by : Emile Mortensen, Electronically Approved : 07/17/2020 17:43:20
== END ==
LOC: NM 09:17
PROVIDERS: ATTEND Internal Medicine Cardiovascular Disease
DX: I48.0 Paroxysmal atrial fibrillation (principal)
CPT/HCPCS: 78452; 93017; A9500; J2785

== ENCOUNTER → 2022-01-29 | Outpatient (CLI) | payer MEDICARE ==
[2019-12-18 12:25] VITALS: BP 137/57
[~2022-01-29] MED LIST changes: -REGADENOSON 0.4 MG/5 ML DISP.SYRIN. IV ONE
--- NOTE | 2022-01-29 11:50 | RAD ---
MR#: [id number] Date of Study: 01/29/2022 Ordering Physician: KIYA HATFIELD, Referring Physician: KIYA HATFIELD, Tech: Robert Miles MBA, RDMS, RVT, RDCS, RTR APPROVED REPORT Patient Location: OUT-PATIENT Indications PAD Findings Right arm 125, left arm 126 Right ankle 129, left ankle 132 Bilateral BREE at one-point Critical Notification Critical Value: No <Conclusion> 1. Normal bilateral BREE Signed by : Kiya Hatfield, Electronically Approved : 01/29/2022 11:49:44
--- NOTE | 2022-01-29 11:51 | RAD ---
MR#: [id number] Date of Study: 01/29/2022 Ordering Physician: KIYA HATFIELD, Referring Physician: KIYA HATFIELD, Tech: Robert Miles, DEBBIE, RDMS, RVT, RDCS, RTR APPROVED REPORT Patient Location: OUT-PATIENT Indications PAD VELOCITY AND DOPPLER WAVEFORM ANALYSIS RIGHT cm/secWaveformSeverity LEFT cm/secWaveform Severity dCFA 135.0BiphasicdCFA 139.0Biphasic Prof Fem Art. 61.0BiphasicProf Fem Art. 80.0Biphasic Fem Art Prox. 130.0TriphasicFem Art Prox. 141.0Biphasic Fem Art Mid. 124.0TriphasicFem Art Mid. 127.0Biphasic Fem Art Dist. 118.0BiphasicFem Art Dist. 117.0Biphasic Pop Art(Fossa) 103.0BiphasicPop Art(AK) 105.0Biphasic PERSONAL LINES INSURANCE ADVISOR Prox. 71.0BiphasicPTA Prox. 77.0Biphasic PERSONAL LINES INSURANCE ADVISOR Dist. 71.0BiphasicPTA Dist. 80.0Biphasic Per Art Mid. 43.0BiphasicPer Art Mid. 98.0Biphasic WIL Prox. 54.0BiphasicATA Prox. 65.0Biphasic DPA 21BiphasicDPA 20Biphasic Findings Grayscale measures the bilateral lower extremity arterial vessels demonstrate mild diffuse atheroscle rosis. Spectral waveforms are mostly biphasic throughout without any evidence of significant disease above the knee. Below the knee there is three-vessel runoff and likely small vessel disease at the level of the dorsalis pedis artery bilaterally. Critical Notification Critical Value: No <Conclusion> 1. No significant bilateral lower extremity arterial disease 2. Probable small vessel disease at the level of the ankle. Signed by : Kiya Hatfield, Electronically Approved : 01/29/2022 11:50:57
--- NOTE | 2022-01-29 15:42 | CARD ---
MR#: [id number] Date of Study: 01/29/2022 Ordering Physician: KIYA HATFIELD, Referring Physician: KIYA HATFIELD, Tech: Sakshi Foster [facility] APPROVED REPORT EXAM: Two-dimensional and M-mode echocardiogram with Doppler and color Doppler. Other Information Quality : AverageHR: 51bpm Rhythm : NSR INDICATION Atrial Fibrillation RISK FACTORS Hypertension 2D DIMENSIONS Left Atrium(2D)3.7 (1.6-4.0cm)IVSd1.1 (0.7-1.1cm) Aortic Root(2D)3.4 (2.0-3.7cm)LVDd4.7 (3.9-5.9cm) LVOT Diameter2.2 (1.8-2.4cm)PWd1.0 (0.7-1.1cm) IVSs1.2 (0.8-1.2cm)LVDs3.3 (2.5-4.0cm) FS (%) 29.5 %PWs1.3 (0.8-1.2cm) SV56.8 ml Aortic Valve AoV Peak Vidal.119.5cm/sAoV VTI22.4cm AO Peak GR.5.7mmHgLVOT Peak Vidal.95.6cm/s LVOT VTI 20.64cmAO Mean GR.3mmHg IRENE (VMAX)2.27vk9YBC (VTI)3.36cm2 Mitral Valve MV E Zcdrfxer65.8cm/sMV DECEL [id number] MV A Cjlozupd47.8cm/sMV PQX75tq E/A Ratio1.4MVA (PHT)3.16cm2 TDI E/Lateral E'6.0E/Medial E'6.6 Tricuspid Valve TR P. Aqsoszgy429pu/sTR Peak Gr.25mmHg LEFT VENTRICLE The left ventricle is normal size. There is normal left ventricular wall thickness. The left ventricu lar systolic function is normal. LV ejection fraction is 50 to 55%. There is normal LV segmental wall motion. RIGHT VENTRICLE The right ventricle is normal size. There is normal right ventricular wall thickness. The right ventr icular systolic function is normal. ATRIA The left atrium size is normal. The right atrium size is normal. The interatrial septum is intact wit h no evidence for an atrial septal defect or patent foramen ovale as noted on 2-D or Doppler imaging. AORTIC VALVE The aortic valve is normal in structure and function. Doppler and Color Flow revealed trace to mild a ortic regurgitation. There is no significant aortic valvular stenosis. MITRAL VALVE The mitral valve is normal in structure and function. There is no evidence of mitral valve prolapse. There is no mitral valve stenosis. Doppler and Color-flow revealed trace to mild mitral regurgitation . TRICUSPID VALVE The tricuspid valve is normal in structure and function. Doppler and Color Flow revealed mild tricusp id regurgitation. Estimated PAP 30 mmHg. There is no tricuspid valve stenosis. GREAT VESSELS The aortic root is normal in size. The ascending aorta is normal in size. The IVC is normal in size a nd collapses >50% with inspiration. PERICARDIAL EFFUSION There is no evidence of significant pericardial effusion. Critical Notification Critical Value: No <Conclusion> The left ventricle is normal size. The left ventricular systolic function is normal. LV ejection fraction is 50 to 55%. Doppler and Color Flow revealed trace to mild aortic regurgitation. There is no significant aortic valvular stenosis. Doppler and Color-flow revealed trace to mild mitral regurgitation. Doppler and Color Flow revealed mild tricuspid regurgitation. Estimated PAP 30 mmHg. Signed by : Emmanuel Nowak MD Electronically Approved : 01/29/2022 15:41:57
== END ==
LOC: US 09:04
PROVIDERS: ATTEND Internal Medicine Cardiovascular Disease
DX: I70.203 Unspecified atherosclerosis of native arteries of extremities, bilateral legs (principal); I08.3 Combined rheumatic disorders of mitral, aortic and tricuspid valves; I48.0 Paroxysmal atrial fibrillation
CPT/HCPCS: 93306; 93922; 93925; C8929